=== PATIENT | male | born 1945 | race Caucasian/White ===

== ENCOUNTER 2017-12-19 14:57 | Observation (INO) | payer OTHER, MEDICARE, SELFPAY ==
[2017-12-19] VITALS (11 sets, daily range): BP systolic 127–160; BP diastolic 75–101; PULSE 50–99; RESP 13–18; TEMP 36.8–37; O2SAT 96–100; BMI 28.1; BMI 28.2; BMI 26.4
--- NOTE | 2017-12-19 15:21 | RAD_ITS ---
STUDY: X-RAY CHEST REASON FOR EXAM: Male, 72 years old. Dyspnea. TECHNIQUE: Single AP portable view of the chest. COMPARISON: None. FINDINGS: EKG electrodes are seen. Hyperinflation. Scattered calcified granulomas. No acute abnormality is seen. There is no demonstrated pleural abnormality. Normal size heart. Normal mediastinum and joao. Normal visualized pulmonary arteries. There is atherosclerotic tortuosity of the aortic arch and descending thoracic aorta. There are degenerative changes of the visualized thoracic spine. Normal visualized ribs, clavicles, and shoulders. There is no demonstrated abnormality of the visualized soft tissue structures of the upper abdomen. RAD/Chest 1 View (Portable) IMPRESSION: Hyperinflation. No acute abnormality is seen. Electronically Signed: Karl Werner MD at 15:42 EST Tel [phone], Service support ,
--- NOTE | 2017-12-19 15:21 | EKG12_ITS ---
Test Reason : CP Blood Pressure : / mmHG Vent. Rate : 077 BPM Atrial Rate : 077 BPM P-R Int : 186 ms QRS Dur : 074 ms QT Int : 384 ms P-R-T Axes : 067 -30 076 degrees QTc Int : 434 ms Normal sinus rhythm Left axis deviation Septal WI, age undetermined, cannot be excluded Nonspecific T wave abnormality Abnormal ECG Confirmed by RAMBO GEORGE, JOHN ([id number]), newspaper editor managing SARAN NARANJO ([id number]) on 12/20/2017 10:00:49 AM Referred By: Enrico Wan Confirmed By:JOHN RICKS MD
--- NOTE | 2017-12-19 15:24 | EKG12_ITS ---
Test Reason : REPEAT Blood Pressure : / mmHG Vent. Rate : 068 BPM Atrial Rate : 068 BPM P-R Int : 182 ms QRS Dur : 074 ms QT Int : 392 ms P-R-T Axes : 000 -28 147 degrees QTc Int : 416 ms Normal sinus rhythm Leftward axis Septal ID, age undetermined, cannot be excluded T wave abnormality, consider lateral ischemia Consider repeat ECG Abnormal ECG Confirmed by RAMBO GEORGE, JOHN ([id number]), news video editor SARAN NARANJO ([id number] on 12/20/2017 10:05:04 AM Referred By: Enrico Wan Confirmed By:JOHN RICKS MD
[2017-12-19] MEDS: 0.9% Normal Saline 1,000 ML 150 ML IV (15:29)
[2017-12-19] MEDS: Aspirin 81 MG TAB.CHEW 324 MG PO (15:29)
--- NOTE | 2017-12-19 15:34 | ED.DCSUM_ITS ---
- ER Visit Summary Date of Service: 12/19/17 Chief Complaint: Chest pain History of Present Illness: The patient is a 72 M who goes to the [facility] and has seen Dr. Orosco in the past. Reports that he has chest pain that began 3 days ago. States that it is an intermittent tightness that comes on with exertion and resolves with rest after approximately 15-20 minutes. Pain is substernal radiates to both shoulders and up into his jaw. It is 5 out of 10 at worst and is pain-free currently. It is accompanied by diaphoresis and shortness of breath. This does seem to be accelerating. Patient reports that Tuesday he had the pain while cutting wood. Tuesday and Tuesday he had the pain while carrying wood. Today he had pain just while walking up and down the steps at home. He has not had pain at rest. Reports that he had a stress test 2 or 3 years ago. He has never had a heart catheterization. Physical Examination: Vitals: Stable. Afebrile. General: Well-nourished and well-developed. Head: Normocephalic atraumatic. Neck: Supple, no lymphadenopathy. No JVD. Nontender. Cardiovascular: Regular rate and rhythm. No murmurs. Respiratory: No respiratory distress. Clear to auscultation bilaterally. Abdominal: Soft, nontender, nondistended, normal bowel sounds. No guarding, rebound, or peritoneal signs. Back: Nontender. Extremities: Nontender, no edema. Skin: Normal color, no rash. Neurologic: Alert and oriented ?3. Cranial nerves II through XII are intact. Normal strength and sensation. Psych: Normal affect. Test Results: EKG is sinus at [address] changes. There is no old EKG for comparison. Repeat EKG is unchanged. Chest x-ray shows no acute disease. CBC is remarkable platelets of 118. Chem-7 is remarkable for a BUN of 20. Troponin is 0.08. Emergency Department Course and Treatment: Patient was given aspirin. He remained pain-free while here. After discussion with Dr. Cantrell he was given a shot of Lovenox subcu. Treatment Plan: The patient was discussed with Dr. Cantrell . He will be admitted to the hospital for further evaluation and treatment. Disposition: Admitted in stable condition. Impression: 1. Chest pain. 2. RICKY score of 1. 3. Thrombocytopenia. This note was generated with [employer] dictation software. It may contain incorrect words, spelling, and punctuation that were not noted in review of the chart prior to signing ED Disposition - Plan for ED Patient: Chief Complaint: Chest Pain Referrals: Tunde Guzmán MD [Primary Care Provider] -
[2017-12-19 15:44] LABS: Absolute Lymphocyte Count 1.74 X10^3/ul (0.83-4.51); Absolute Neutrophil Count 2.8 X10^3/uL (2.0-7.7); Basophil# 0.04 X10^3/uL; Basophil% 0.8 % (0-1); Eosinophil# 0.23 X10^3/uL; Eosinophils% 4.4 % (0-5); Hematocrit 46.3 % (40-54); Hemoglobin 15.6 g/dl (13.0-16.5); Lymphocyte # 1.74 X10^3/ul (4.0); Lymphocyte % 33.1 % (19-41); Mean Corp Hgb Conc 33.7 g/gl (32-36); Mean Corpuscular Hgb 30.1 pg (27.0-32.0); Mean Corpuscular Volume 89.4 fL (80-94); Mean Platelet Vol. 9.9 fl (6.2-12.0); Monocyte# 0.42 X10^3/uL; Neutrophil # 2.81 X10^3/uL (2.7-7.7); Neutrophil % 53.5 % (47-70); POSITIVE COUNT NO; POSITIVE DIFFERENTIAL NO; POSITIVE MORPHOLOGY NO; Platelet Count 118 K/mm3 (150-450); RBC Distribution Width CV 12.6 % (11.6-14.6); RBC Distribution Width SD 40.2 fl (35.1-43.9); Red Blood Count 5.18 M/mm3 (4.6-6.2); White Blood Count 5.3 K/mm3 (4.4-11.0)
[2017-12-19 15:55] LABS: Anion Gap 7 (5-15); BUN 20 mg/dL (7-18); BUN/Creat Ratio 18.9 RATIO (10-20); Calcium,Total 8.6 mg/dL (8.5-10.1); Chloride 107 mmol/L (98-107); Creatinine, Serum 1.06 mg/dL (0.70-1.30); EST Glomerular Filtration Rate 73 mL/min (>60); Est Glom Filt Rate - Afr Amer 89 mL/min (>60); Estimated Creatinine Clearance 62.74 ml/min; Glucose 96 mg/dL (74-106); Potassium 4.2 mmol/L (3.5-5.1); Sodium Level 140 mmol/L (136-145)
--- NOTE | 2017-12-19 17:15 | CON.PCM_ITS ---
Reason for Consult Date of Consultation: 12/19/17 Reason for Consultation: Chest pain. History of Present Illness: The patient is a 72 year old M with a past medical history significant for hypertension who presented to the emergency room this afternoon after experiencing chest discomfort described as a heaviness with some radiation to the left side of his neck as well as the left shoulder and the left arm. He says that this appeared to occur with exertion and go away with rest. He was putting some wood this afternoon and also carried it into his house and said he experienced more of this discomfort. Due to the concern he presented to the emergency room where he was evaluated. His electrocardiogram did not demonstrate any acute changes in his diastolic blood pressure was only mildly elevated. He has had some shortness of breath recently over the last month with minimal exertion he has had no nausea no diaphoresis no palpitations no pedal edema. He is not on antihypertensive therapy but is on medication for arthritis. Cardiology was consulted to see the patient because of his symptoms. At this time evaluating him in the emergency room he is free of symptoms. [] Past Medical History Allergies/Adverse Reactions: Allergies Sulfa (Sulfonamide Antibiotics) Allergy (Verified 12/19/17 15:03) Swelling . Home Medications: Ambulatory Orders Medication Instructions Recorded Aspirin [Aspirin, Baby] 81 mg PO DAILY@0800 12/19/17 Meloxicam 15 mg PO DAILY 12/19/17 Pravastatin [Pravachol] 10 mg PO QHS 12/19/17 Surgical History: no surgical history - *Family History Paternal History Items: Hypertension Lives: Spouse/ Significant Other Smoking Status: Former smoker Alcohol: Rare Drugs: None Review of Systems - Review of Systems General: Denies: Fever, Night Sweats, Fatigue Cardiovascular: Reports: Chest Discomfort at Rest, Chest Discomfort with Exertion, Shortness of Breath, Shortness of Breath with Exertion. Denies: Chest Discomfort, Orthopnea, PND, Peripheral Edema, Palpitations, Lightheadedness, Dizziness, Near Syncope, Syncope Respiratory: Denies: Cough, Sputum Production, Hemoptysis Gastrointestinal: Denies: Hematemesis, Hematochezia, Melena Genitourinary: Denies: Dysuria, Hematuria Skin: Denies: Rash Neurological: Denies: Dizziness Subjectve: Pleasant gentleman in no apparent distress Objective: Vital Signs Temp Pulse Resp BP Pulse Ox 98.4 F 99 18 160/80 H 100 12/19/17 14:57 02/05/18 16:00 12/19/17 16:00 12/19/17 16:00 12/19/17 16:00 Oxygen Delivery Method Room Air Weight: 185 lb 3.013 oz Body Mass Index (BMI) 28.1 General: Awake, Alert, Oriented x 3 HEENT: PERRL, EOMI, Sclera Non Icteric Neck: Supple, Good ROM, No Lymph Node Enlargement Lungs: Clear to auscultation Cardiovascular: Regular Rhythm, Normal S1, Normal S2, No Murmurs, No Rubs, No Gallops Vascular: No Carotid Bruits, Normal Femoral Pulses, Normal Radial Pulses, Normal Dorsalis Pedal Pulse, Normal Posterior Tibial Pulses Abdomen: Bowel Sounds Present, Soft, Non Tender, No HSM, No Organomegaly Extremities: No Cyanosis, No Clubbing, No edema Neurological: No Focal Motor or Sensory Deficit Psych/Mental Status: Appropriate 12/19/17 15:24: WBC 5.3, RBC 5.18, Hgb 15.6, Hct 46.3, MCV 89.4, MCH 30.1, MCHC 33.7, RDW 12.6, RDW Differential 40.2, Plt Count 118 L, MPV 9.9, Immature Gran % (Auto) 0.200, Neut % (Auto) 53.5, Lymph % (Auto) 33.1, [place] % (Auto) 8.0, Eos % (Auto) 4.4, Baso % (Auto) 0.8, Absolute Neuts (auto) 2.8, Total Counted Not Reportable 12/19/17 15:24: Sodium 140, Potassium 4.2, Chloride 107, Carbon Dioxide 26.0, Anion Gap 7, BUN 20 H, Creatinine 1.06, Est GFR (MDRD) Af Amer 89, Est GFR (MDRD ) Non-Af 73, BUN/Creatinine Ratio 18.9, Glucose 96, Calcium 8.6, Troponin I 0.08 H Rhythm: EKG: Normal sinus rhythm rate of 70 bpm and no acute changes. Assessment/Plan 1. Chest pain-unstable angina. He presents with chest discomfort of recent duration associated with shortness of breath with minimal exertion which appears to be getting worse with time. Though he does not have any EKG changes and he has a RICKY score of 1 my recommendation based on his history is that we defer stress testing and proceed with a cardiac catheterization. 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 He does have a history of hyperlipidemia. My recommendation at this time would be to treated as follows. Aspirin 81 mg a day Clopidogrel loading with 300 mg tonight and 75 mg daily Metoprolol 25 mg twice a day Pravastatin 40 mg a day Nitropaste overnight Scheduled for cardiac catheterization in a.m. at 7:45 AM Has been discussed with the patient and his and they understand and agree to proceed. 2. Hyperlipidemia He has previously been on lipid lowering medication and lipid profile will be performed in a.m. 3. Thrombocytopenia Does have mild thrombocytopenia and this will be rechecked in the morning. Thank you for allowing me to participate in the care of your patient. Please don't hesitate to call if any issues arise
[2017-12-19] MEDS: Enoxaparin 100 MG/ML Syringe 80 MG SC (17:25)
[2017-12-19] MEDS: Clopidogrel Bisulfate 300 MG Tablet PO (18:22)
[2017-12-19] MEDS: Nitroglycerin Oint 1 INCH PACKET TRANSDERM. ×2 (19:25→23:57)
[2017-12-19] MEDS: 0.9% Normal Saline 1,000 ML 75 ML IV (21:04)
[2017-12-19] MEDS: Pravastatin 40 MG Tablet PO (21:05)
[2017-12-19] MEDS: Metoprolol Tartrate 25 MG Tablet PO (21:05)
[2017-12-20] VITALS (32 sets, daily range): BP systolic 85–150; BP diastolic 49–95; PULSE 48–129; RESP 12–22; TEMP 36.6–36.7; O2SAT 94–100
[2017-12-20 04:53] LABS: Absolute Lymphocyte Count 2.32 X10^3/ul (0.83-4.51); Absolute Neutrophil Count 2.6 X10^3/uL (2.0-7.7); Basophil# 0.05 X10^3/uL; Basophil% 0.9 % (0-1); Eosinophil# 0.31 X10^3/uL; Eosinophils% 5.4 % (0-5); Hematocrit 41.9 % (40-54); Hemoglobin 14.5 g/dl (13.0-16.5); Lymphocyte # 2.32 X10^3/ul (4.0); Lymphocyte % 40.4 % (19-41); Mean Corp Hgb Conc 34.6 g/gl (32-36); Mean Corpuscular Hgb 30.8 pg (27.0-32.0); Mean Platelet Vol. 10.1 fl (6.2-12.0); Monocyte# 0.41 X10^3/uL; Monocyte% 7.1 % (0-10); Neutrophil # 2.63 X10^3/uL (2.7-7.7); Neutrophil % 45.9 % (47-70); Platelet Count 118 K/mm3 (150-450); RBC Distribution Width CV 12.6 % (11.6-14.6); RBC Distribution Width SD 40.9 fl (35.1-43.9); Red Blood Count 4.71 M/mm3 (4.6-6.2); White Blood Count 5.7 K/mm3 (4.4-11.0)
[2017-12-20 04:55] LABS: International Normalized Ratio 1.2; Prothrombin Time (Protime)PT. 14.3 SECONDS (11.7-14.9)
[2017-12-20 04:57] LABS: Partial Thromboplast Time 34.4 Seconds (24.1-36.2)
[2017-12-20 05:08] LABS: POSITIVE COUNT NO; POSITIVE DIFFERENTIAL NO; POSITIVE MORPHOLOGY NO
[2017-12-20 05:12] LABS: ALB/GLOB Ratio 1.5 RATIO (0.9-2.4); AST(SGOT) 16 U/L (15-37); Alanine Aminotransfer ALT/SGPT 19 U/L (16-61); Albumin, Serum 3.6 g/dL (3.2-5.0); Alkaline Phosphatase 46 U/L (45-117); Anion Gap 6 (5-15); BUN 17 mg/dL (7-18); BUN/Creat Ratio 16.3 RATIO (10-20); Calcium,Total 7.9 mg/dL (8.5-10.1); Chloride 111 mmol/L (98-107); Cholesterol 176 mg/dL (200); Creatinine, Serum 1.04 mg/dL (0.70-1.30); EST Glomerular Filtration Rate 75 mL/min (>60); Est Glom Filt Rate - Afr Amer 91 mL/min (>60); Estimated Creatinine Clearance 66.09 ml/min; Globulin 2.4 g/dL (2.2-4.2); Glucose 91 mg/dL (74-106); High Density Lipoprotein 45 mg/dL; Potassium 4.4 mmol/L (3.5-5.1); Sodium Level 144 mmol/L (136-145); Triglycerides 220 mg/dL; Very Low Density Lipoprotein 44 mg/dL (5-40)
[2017-12-20] MEDS: Metoprolol Tartrate 25 MG Tablet PO ×2 (05:45→21:06)
[2017-12-20] MEDS: Aspirin E.C. 81 MG Tablet PO (05:45)
[2017-12-20] MEDS: Clopidogrel Bisulfate 75 MG Tablet PO (05:45)
[2017-12-20] MEDS: Nitroglycerin Oint 1 INCH PACKET TRANSDERM. ×2 (05:45→14:17)
--- NOTE | 2017-12-20 05:55 | EKG12_ITS ---
Test Reason : AM EKG Blood Pressure : / mmHG Vent. Rate : 055 BPM Atrial Rate : 055 BPM P-R Int : 188 ms QRS Dur : 074 ms QT Int : 506 ms P-R-T Axes : 023 -13 114 degrees QTc Int : 484 ms Sinus bradycardia T wave abnormality, consider anterolateral ischemia Prolonged QT Abnormal ECG Confirmed by RAMBO GEORGE, JOHN ([id number]), film editor supervisor SARAN NARANJO ([id number]) on 12/21/2017 2:56:25 PM Referred By: Enrico Wan Confirmed By:JOHN RICKS MD
[2017-12-20] MEDS: 0.9% Normal Saline 1,000 ML 75 ML IV (06:52)
--- NOTE | 2017-12-20 08:09 | PCM.PN.CARD ---
Subjectve: Seen and evaluated and appears to be doing well and underwent cardiac catheterization this morning Objective: Vital Signs Temp Pulse Resp BP Pulse Ox 97.9 F 62 18 117/57 L 97 12/20/17 05:53 12/20/17 07:06 12/20/17 05:53 12/20/17 05:53 12/20/17 05:53 Oxygen Flow Rate 2 Oxygen Delivery Method Nasal Cannula Weight: 179 lb 3.773 oz Body Mass Index (BMI) 26.4 Intake and Output for Last 24 Hours 12/18/17 12/19/17 12/20/17 23:59 23:59 23:59 Intake Total 480 / 480 742 / 742 Balance 480 / 480 742 / 742 General: Awake, Alert, Oriented x 3 HEENT: PERRL, EOMI, Sclera Non Icteric Neck: Supple, Good ROM, No Lymph Node Enlargement Lungs: Clear to auscultation Cardiovascular: Regular Rhythm, Normal S1, Normal S2, No Murmurs, No Rubs, No Gallops Vascular: No Carotid Bruits, Normal Femoral Pulses, Normal Radial Pulses, Normal Dorsalis Pedal Pulse, Normal Posterior Tibial Pulses Abdomen: Bowel Sounds Present, Soft, Non Tender, No HSM, No Organomegaly Extremities: No Cyanosis, No Clubbing, No edema Neurological: No Focal Motor or Sensory Deficit 12/19/17 18:50: Troponin I 0.60 H* 12/19/17 23:08: Troponin I 1.03 H* 12/20/17 04:28: WBC 5.7, RBC 4.71, Hgb 14.5, Hct 41.9, MCV 89.0, MCH 30.8, MCHC 34.6, RDW 12.6, RDW Differential 40.9, Plt Count 118 L, MPV 10.1, Immature Gran % (Auto) 0.300, Neut % (Auto) 45.9 L, Lymph % (Auto) 40.4, [place] % (Auto) 7.1, Eos % (Auto) 5.4 H, Baso % (Auto) 0.9, Absolute Neuts (auto) 2.6, Total Counted Not Reportable 12/20/17 04:28: Sodium 144, Potassium 4.4, Chloride 111 H, Carbon Dioxide 27.0, Anion Gap 6, BUN 17, Creatinine 1.04, Est GFR (MDRD) Af Amer 91, Est GFR (MDRD) Non-Af 75, BUN/Creatinine Ratio 16.3, Glucose 91, Calcium 7.9 L, Total Bilirubin 0.70, Troponin I 0.81 H*, Triglycerides 220 H, Cholesterol 176, LDL Cholesterol 87, VLDL Cholesterol 44 H, HDL Cholesterol 45 12/20/17 04:28: PT 14.3, INR 1.2, APTT 34.4 Rhythm: EKG: Sinus rhythm with anterior T-wave inversions Assessment/Plan 1. Chest pain-unstable [id number] elevation myocardial infarction There is a patient this morning demonstrated the following: Normal left main coronary artery Left anterior descending artery with proximal 95% stenosis Left circumflex artery with mild disease. Right coronary artery dominant with mild mid segment disease Preserved left ventricular systolic function. Based on the above angiographic findings he would be referred for angioplasty of the left anterior descending artery. 2. Hyperlipidemia He has previously been on lipid lowering medication and lipid profile running appears to be stable but would increase it to a high intensity statin. 3. Thrombocytopenia Does have mild thrombocytopenia and this is remaining stable. Thank you for allowing me to participate in the care of your patient. Please don't hesitate to call if any issues arise
--- NOTE | 2017-12-20 08:45 | NURSING ---
Patient will be stented and sent to ICU from labor representative. Spoke with Artur TOBACCO SAMPLE PULLER and gave report.
--- NOTE | 2017-12-20 09:17 | EKG12_ITS ---
Test Reason : PCI Blood Pressure : / mmHG Vent. Rate : 047 BPM Atrial Rate : 047 BPM P-R Int : 196 ms QRS Dur : 076 ms QT Int : 548 ms P-R-T Axes : 067 -16 090 degrees QTc Int : 484 ms Sinus bradycardia Marked T wave abnormality, consider anterolateral ischemia Prolonged QT Abnormal ECG Confirmed by RAMBO GEORGE, JOHN ([id number]), editorial specialist SARAN NARANJO ([id number]) on 12/26/2017 2:12:37 PM Referred By: Enrico Wan Confirmed By:JOHN RICKS MD
[2017-12-20] MEDS: 0.9% Normal Saline 1,000 ML 150 ML IV (09:32)
[2017-12-20 09:41] LABS: Hematocrit 39.7 % (40-54); Hemoglobin 13.5 g/dl (13.0-16.5); Mean Corpuscular Hgb 30.7 pg (27.0-32.0); Mean Corpuscular Volume 90.2 fL (80-94); Platelet Count 112 K/mm3 (150-450); RBC Distribution Width CV 12.6 % (11.6-14.6); RBC Distribution Width SD 40.9 fl (35.1-43.9); White Blood Count 5.1 K/mm3 (4.4-11.0)
[2017-12-20 09:43] LABS: Scan Indicated on CBC? Y/N NO
[2017-12-20 09:49] LABS: CPK Total, Creatine Kinase 67 U/L (39-308)
--- NOTE | 2017-12-20 10:27 | CRPHASE1 ---
Patient Data/Charges Phase II Referral:: [facility] Start Phase II:: FOLLOWING CARDIOLOGY OFFICE VISIT Risk Factors/Lifestyle Smoking Status: Former smoker Hx Hypertension: Yes Hx Dyslipidemia: Yes Height: 5 ft 9 in - BMI 26.5 Stress: Home/Family Risk Factor for Sedentary Lifestyle: Moderate Risk Laboratory Values: Cardiac Rehab Phase I Labs Triglycerides 220 mg/dL (-199) H 12/20/17 04:28 Cholesterol 176 mg/dL (200) 12/20/17 04:28 LDL Cholesterol 87 mg/dL (0-130) 12/20/17 04:28 HDL Cholesterol 45 mg/dL (40-) 12/20/17 04:28 Phase I Education Given On:: [place], Nutrition, Antiplatelet medication Issues Affecting Care:: None Knowledge of Condition:: Yes Learning Preferences: Verbal, Written - AT BEDSIDE Hospital Course Presenting Symptoms:: DYSPNEA WITH EXERTION. NON-STEMI Medical/Surgical History MT:: Yes Angina:: No Hypertension:: Yes Dyslipidemia:: Yes Discharge/Home/Social Eval Discharge Disposition: Home Marital Status:
--- NOTE | 2017-12-20 10:30 | CRPHASE1_ITS ---
Patient Data/Charges Phase II Referral:: [facility] Start Phase II:: FOLLOWING CARDIOLOGY OFFICE VISIT Risk Factors/Lifestyle Smoking Status: Former smoker Hx Hypertension: Yes Hx Dyslipidemia: Yes Height: 5 ft 9 in - BMI 26.5 Stress: Home/Family Risk Factor for Sedentary Lifestyle: Moderate Risk Laboratory Values: Cardiac Rehab Phase I Labs Triglycerides 220 mg/dL (-199) H 12/20/17 04:28 Cholesterol 176 mg/dL (200) 12/20/17 04:28 LDL Cholesterol 87 mg/dL (0-130) 12/20/17 04:28 HDL Cholesterol 45 mg/dL (40-) 12/20/17 04:28 Phase I Education Given On:: [place], Nutrition, Antiplatelet medication Issues Affecting Care:: None Knowledge of Condition:: Yes Learning Preferences: Verbal, Written - AT BEDSIDE Hospital Course Presenting Symptoms:: DYSPNEA WITH EXERTION. NON-STEMI Medical/Surgical History OK:: Yes Angina:: No Hypertension:: Yes Dyslipidemia:: Yes Discharge/Home/Social Eval Discharge Disposition: Home Marital Status:
--- NOTE | 2017-12-20 10:32 | CRPH1.INST_ITS ---
General Education CAD and cardiac anatomy and function:: Patient communicates acknowledgment, Family communicates acknowledgment Explanation of diagnoses and procedures:: Patient communicates acknowledgment, Family communicates acknowledgment Sign/Symptoms of OR:: Patient communicates acknowledgment, Family communicates acknowledgment Antiplatelet therapy: Patient communicates acknowledgment, Family communicates acknowledgment Proper use of NTG-SL: Patient communicates acknowledgment, Family communicates acknowledgment Emergency procedures and activation of EMS: Patient communicates acknowledgment , Family communicates acknowledgment Compliance of all prescribed medications: Patient communicates acknowledgment, Family communicates acknowledgment - AT BEDSIDE Smoking Recommendations Include:: Previous smoker; encourage continued cessation Nicotine/Smoking Response Code:: Patient communicates acknowledgment, Family communicates acknowledgment Dyslipidemia Patient Dyslipidemia Risk Factors Are:: Total Cholesterol, Triglycerides, HDL, LDL Recommendations Include:: Lipid profile provided, Reviewed NCEP/ATP guidelines, Therapeutic Lifestyle Change dietary guidelines Dyslipidemia Response Code:: Patient communicates acknowledgment, Family communicates acknowledgment Overweight/Obesity Patient Overweight/Obesity Risk Factors Are:: Overweight = 26-29 Recommendations Include:: Weight loss of 5-10%, Reduced calorie diet, Exercise 5 -7 times/week Overweight/Obesity:: Patient communicates acknowledgment, Family communicates acknowledgment Hypertension Recommendations Include:: Maintain BP <130/85, DASH dietary guidelines, Decrease /maintain normal body weight, Moderation of ETOH Hypertension:: Patient communicates acknowledgment, Family communicates acknowledgment Heart Disease Recommendations Include:: Educated family members of importance of prevention of heart disease Heart Disease Response Code:: Patient communicates acknowledgment, Family communicates acknowledgment Diabetes Patient Diabetes Risk Factors Are:: No documented hx of diabetes Metabolic Syndrome Patient Metabolic Syndrome Risk Factors Are [3 of 5]:: High triglyceride >150, Hypertension, Low HDL <40 [male] or < 50 [female] Recommendations Include:: Reinforce compliance to risk factor modifications, Encouraged follow-up with Primary Care Physician Metabolic Syndrome Response Code:: Patient communicates acknowledgment, Family communicates acknowledgment Sedentary Patient Sedentary Risk Factors Are:: Lack of regular exercise Recommendations Include:: Aerobic exercise 5-7 times/week for 20-30 minutes continuously, Benefits of regular exercise, Discussed home walking program, Monitored Outpatient Cardiac Rehab Sedentary Response Code:: Patient communicates acknowledgment, Family communicates acknowledgment Stress Recommendations Include:: Identification of stressors, and assessment of coping skills, Stress management techniques Stress Response Code:: Patient communicates acknowledgment, Family communicates acknowledgment
[2017-12-20 11:05] LABS: ACT Activated Clotting Time 186 sec (74-137)
[2017-12-20 11:46] LABS: ACT Activated Clotting Time 191 sec (74-137)
[2017-12-20 12:10] LABS: M R Staph aureus DNA By PCR Negative (Negative); Probe Check PASS; Specimen Processing Control PASS
[2017-12-20 12:11] LABS: ACT Activated Clotting Time 153 sec (74-137)
--- NOTE | 2017-12-20 14:42 | CHAPLAIN ---
Type of Pastoral Visit _x__ Initial Visit ___ Follow-up Visit ___ On-call Visit ___ General Patient Visit ___ Spiritual Assessment ___ Family Conference ___ Bereavement ___ Rapid Response ___ Code Blue ___ Other (describe below) Pastoral Care Referral From _x__ Patient _x__ Family ___ Nurse ___ Physician ___ Credit Correspondence Clerk ___ Electrical Instrument Technician ___ Other (describe below) Sacrament/Intervention _x__ Active listening ___ Anointing ___ Restoration ___ Bereavement ___ Communion ___ [place] exploration ___ ___ Life review _x__ Prayer ___ Reconciliation ___ Sacrament of Sick ___ Supportive presence ___ Wedding ___ Other (describe below) Pastoral Comments
[2017-12-20 16:49] LABS: Hematocrit 42.2 % (40-54); Mean Corp Hgb Conc 33.2 g/gl (32-36); Mean Corpuscular Hgb 29.9 pg (27.0-32.0); Mean Corpuscular Volume 90.2 fL (80-94); Mean Platelet Vol. 9.8 fl (6.2-12.0); Platelet Count 109 K/mm3 (150-450); RBC Distribution Width CV 12.9 % (11.6-14.6); RBC Distribution Width SD 41.3 fl (35.1-43.9); Red Blood Count 4.68 M/mm3 (4.6-6.2); White Blood Count 4.8 K/mm3 (4.4-11.0)
[2017-12-20 17:03] LABS: CPK Total, Creatine Kinase 73 U/L (39-308)
[2017-12-20 17:07] LABS: Scan Indicated on CBC? Y/N NO
[2017-12-20] MEDS: Atorvastatin Calcium 80 MG Tablet PO (21:07)
[2017-12-20] MEDS: 0.9% NaCl Peripheral Flush Adult/Peds IV (21:08)
[2017-12-20 23:06] LABS: Hematocrit 40.8 % (40-54); Hemoglobin 13.5 g/dl (13.0-16.5); Mean Corp Hgb Conc 33.1 g/gl (32-36); Mean Corpuscular Hgb 29.8 pg (27.0-32.0); Mean Corpuscular Volume 90.1 fL (80-94); Mean Platelet Vol. 9.6 fl (6.2-12.0); Platelet Count 104 K/mm3 (150-450); RBC Distribution Width CV 12.8 % (11.6-14.6); RBC Distribution Width SD 41.6 fl (35.1-43.9); Red Blood Count 4.53 M/mm3 (4.6-6.2); White Blood Count 8.1 K/mm3 (4.4-11.0)
[2017-12-20 23:07] LABS: Scan Indicated on CBC? Y/N NO
[2017-12-20 23:20] LABS: CPK Total, Creatine Kinase 70 U/L (39-308)
[2017-12-21] VITALS (14 sets, daily range): BP systolic 97–129; BP diastolic 52–79; PULSE 52–60; RESP 12–18; TEMP 36.6–37.6; O2SAT 94–97
[2017-12-21 06:50] LABS: Hematocrit 41.5 % (40-54); Hemoglobin 13.8 g/dl (13.0-16.5); Mean Corp Hgb Conc 33.3 g/gl (32-36); Mean Corpuscular Hgb 29.7 pg (27.0-32.0); Mean Corpuscular Volume 89.5 fL (80-94); Mean Platelet Vol. 9.9 fl (6.2-12.0); Platelet Count 102 K/mm3 (150-450); RBC Distribution Width CV 12.8 % (11.6-14.6); RBC Distribution Width SD 41.2 fl (35.1-43.9); Red Blood Count 4.64 M/mm3 (4.6-6.2); Scan Indicated on CBC? Y/N NO
[2017-12-21 07:05] LABS: Anion Gap 8 (5-15); BUN 17 mg/dL (7-18); BUN/Creat Ratio 18.5 RATIO (10-20); Calcium,Total 8.2 mg/dL (8.5-10.1); Chloride 110 mmol/L (98-107); Creatinine, Serum 0.92 mg/dL (0.70-1.30); EST Glomerular Filtration Rate 86 mL/min (>60); Est Glom Filt Rate - Afr Amer 104 mL/min (>60); Estimated Creatinine Clearance 74.71 ml/min; Glucose 92 mg/dL (74-106); Potassium 4.1 mmol/L (3.5-5.1); Sodium Level 142 mmol/L (136-145)
--- NOTE | 2017-12-21 07:51 | PN.CARD_ITS ---
Subjectve: patient seen and evaluated well with no complaints. Objective: Vital Signs Temp Pulse Resp BP Pulse Ox 98.7 F 52 L 17 116/69 96 12/21/17 03:00 12/21/17 06:00 12/21/17 06:00 12/21/17 06:00 12/21/17 06:00 Oxygen Flow Rate 2 Oxygen Delivery Method Room Air Weight: 180 lb 12.465 oz Body Mass Index (BMI) 26.4 Intake and Output for Last 24 Hours 12/19/17 12/20/17 12/21/17 23:59 23:59 23:59 Intake Total 480 / 480 2392 / 2392 640 / 640 Output Total 1200 / 1200 700 / 700 Balance 480 / 480 1192 / 1192 -60 / -60 General: Awake, Alert, Oriented x 3 HEENT: PERRL, EOMI, Sclera Non Icteric Neck: Supple, Good ROM, No Lymph Node Enlargement Lungs: Clear to auscultation Cardiovascular: Regular Rhythm, Normal S1, Normal S2, No Murmurs, No Rubs, No Gallops Vascular: No Carotid Bruits, Normal Femoral Pulses, Normal Radial Pulses, Normal Dorsalis Pedal Pulse, Normal Posterior Tibial Pulses Abdomen: Bowel Sounds Present, Soft, Non Tender, No HSM, No Organomegaly Extremities: No Cyanosis, No Clubbing, No edema Neurological: No Focal Motor or Sensory Deficit 12/20/17 09:25: WBC 5.1, RBC 4.40 L, Hgb 13.5, Hct 39.7 L, MCV 90.2, MCH 30.7, MCHC 34.0, RDW 12.6, RDW Differential 40.9, Plt Count 112 L, MPV 10.0 12/20/17 16:25: WBC 4.8, RBC 4.68, Hgb 14.0, Hct 42.2, MCV 90.2, MCH 29.9, MCHC 33.2, RDW 12.9, RDW Differential 41.3, Plt Count 109 L, MPV 9.8 12/20/17 22:50: WBC 8.1, RBC 4.53 L, Hgb 13.5, Hct 40.8, MCV 90.1, MCH 29.8, MCHC 33.1, RDW 12.8, RDW Differential 41.6, Plt Count 104 L, MPV 9.6 12/21/17 06:30: WBC 6.0, RBC 4.64, Hgb 13.8, Hct 41.5, MCV 89.5, MCH 29.7, MCHC 33.3, RDW 12.8, RDW Differential 41.2, Plt Count 102 L, MPV 9.9 12/21/17 06:30: Sodium 142, Potassium 4.1, Chloride 110 H, Carbon Dioxide 24.0, Anion Gap 8, BUN 17, Creatinine 0.92, Est GFR (MDRD) Af Amer 104, Est GFR (MDRD ) Non-Af 86, BUN/Creatinine Ratio 18.5, Glucose 92, Calcium 8.2 L Rhythm: EKG: Sinus rhythm Assessment/Plan 1. Chest pain-unstable [id number]-EG elevation myocardial infarction The catheterization demonstrated the following: Normal left main coronary artery Left anterior descending artery with proximal 95% stenosis Left circumflex artery with mild disease. Right coronary artery dominant with mild mid segment disease Preserved left ventricular systolic function. Patient underwent successful angioplasty and stenting of the left anterior descending artery with a drug-eluting stent. His creatinine has remained stable and his hemoglobin has also remained stable EKG is stable with no changes and the patient has not had any chest pain. Will be to discharge the patient later today 2. Hyperlipidemia He has previously been on lipid lowering medication and lipid profile running appears to be stable but would increase it to a high intensity statin. 3. Thrombocytopenia Does have mild thrombocytopenia and this is remaining stable. Able to be discharged.
--- NOTE | 2017-12-21 08:44 | PCM.DC.CCA ---
Discharge Diet: Low fat/ Low Cholesterol Discharge Activity: Return to Normal Activity Return to work on:: 12/28/17 May resume sexual activity in: 1 week Call your doctor if your incision/area has: Increased Pain/ Swelling, Increased Redness, Foul Smelling Discharge, Swelling at the incision site Call your doctor if you observe: Fever of 101 or Higher Cleanse incision/area with: Keep Dressing Clean & Dry Additional Dressing/Incision Instructions:: Keep the dressing (bandage) on until the next morning. You may then shower, but do not take a tub bath for 5 days after your test. It is normal to have some tenderness and discomfort at the puncture site. Sometimes bruising also occurs. However, if pain, numbness, or coldness occurs below the puncture site (in your leg, toes, arms or fingers) call your doctor at once. You may have a small, marble sized knot at the puncture site. This is normal. Do not rub it. It will go away in 4-6 weeks. Bleeding can occur from the area where the puncture was done. Blood may spurt or drip from the site. If blood spurts, apply pressure right away to stop bleeding and call 911. Although rare, bleeding into the tissue (hematoma) can also occur. If this happens, a large, firm area goose egg under the skin will appear. If any of these occur, lie down as flat as you can and have someone apply firm pressure to the cath site with a gauze pad or a clean washcloth for 10-15 minutes. Call 911 or go to the Emergency Department. Allergies/Adverse Reactions: Allergies Sulfa (Sulfonamide Antibiotics) Allergy (Verified 12/19/17 15:03) Swelling . Medications to take at Discharge Aspirin [Aspirin, Baby] 81 mg PO DAILY@0800 12/19/17 Aspirin E.C. [Ecotrin] 81 mg PO DAILY@0800 #90 tablet 12/21/17 Atorvastatin Calcium [Lipitor] 80 mg PO QHS #30 tablet 12/21/17 Clopidogrel Bisulfate [Plavix] 75 mg PO DAILY #30 tablet 12/21/17 Losartan Potassium [Cozaar] 25 mg PO DAILY #30 tablet 12/21/17 Metoprolol Tartrate [Lopressor (beta juanis)] 25 mg PO BID #60 tablet 12/21/17 The following prescriptions were given: Aspirin E.C. [Ecotrin] 81 mg PO DAILY@0800 #90 tablet Atorvastatin Calcium [Lipitor] 80 mg PO QHS #30 tablet Clopidogrel Bisulfate [Plavix] 75 mg PO DAILY #30 tablet Losartan Potassium [Cozaar] 25 mg PO DAILY #30 tablet Metoprolol Tartrate [Lopressor (beta juanis)] 25 mg PO BID #60 tablet Primary Care Physician: Tunde Guzmán MD [Primary Care Provider] - Please Follow Up With: my office will call Proposed Discharge Date: 12/21/17 Cardiac Rehabilitation Info Cardiac Rehabilitation Program Information: Cardiac Rehabilitation is important for patients like you who are recovering from a heart problem. Cardiac rehabilitation programs are recognized as integral to the continued care of the patient with coronary heart disease. The cardiac rehabilitation program is designed to optimize a patient's physical, psychological, and social functioning. Health child day care provider work in cardiac rehabilitation programs and assist you with getting the treatments you need to get stronger and healthier - like exercise, healthy eating habits, and medications. Cardiac rehabilitation has been show to help people with heart problems live longer and have better life enjoyment than people who do not go to cardiac rehabilitation. Please contact the Cardiac Rehabilitation Program at [facility] at in two weeks if you have not heard from them.
[2017-12-21] MEDS: Aspirin E.C. 81 MG Tablet PO (10:20)
[2017-12-21] MEDS: Metoprolol Tartrate 25 MG Tablet PO (10:20)
[2017-12-21] MEDS: Losartan Potassium 25 MG Tablet PO (10:20)
[2017-12-21] MEDS: Clopidogrel Bisulfate 75 MG Tablet PO (10:23)
--- NOTE | 2017-12-21 10:47 | CL.I_ITS ---
Patient Name: TAYA SINGLETARY Study Date: 12/20/2017 Performing: Shaw Bernabe MD Ht: 68.89 inches 175 cm : 1945 Wt: 178.57 lbs 81 kg Age: 72 Gender: male BSA: 1.97 PROCEDURE(S) PERFORMED [id number] W OR WO PTCA, SINGLE CORONARY ARTERY CLINICAL PROFILE AND CO-MORBIDITIES CONCLUSIONS Successful PTCA/MICHAEL of the proximal LAD with a 3.0 x 38 Promus Synergy, post dilated with a 3.25 x 12 NC balloon between 12 and 14 roger; 85%-->0%, no dissection. Medical management of LCX, RCA non obstructive disease. RECOMMENDATIONS Highly recommend quitting all tobacco products Follow up with primary solid waste collector Risk factor modification ASA Indefinitley Plavix for at least 12 months Routine post interventional care Refer for Outpatient Cardiac Rehab Manual sheath removal per protocol Follow up with Dr. Cantrell DESCRIPTION OF PROCEDURE The patient arrived to the procedure lab. The risks and benefits of the procedure as well as a full d escription of our services here and current unavailability of surgical backup were fully explained to the patient and/or their significant other prior to the catheterization. The Timeout was completed, verifying the correct patient and procedure. The patient's procedural site was prepped and draped in the usual fashion. Local anesthetic was given subcutaneously to right groin region with Lidocaine 2% Using a modified Seldinger technique,arterial access was obtained via the right femoral artery, a 5Fr sheath was inserted. Left Coronary Artery selective angiography was performed in multiple views usin g a 5 Fr. JL 4.5 catheter. Right Coronary Artery selective angiography was then performed in multiple views using a 5 Fr. 3DRC (Francesco) catheter. Left Ventriculography was performed in SANTIAGO projection using a 5 Fr. Pigtail catheter. LV to AO pullback pressures were then recorded.The images were review ed and options discussed. A decision was then made to proceed with an Intervention, IVUS or other adj unct procedure. Arterial sheath was exchanged for a 6 Fr Sheath ebu 3.75 Guide catheter was inserted and engaged into the LCA. Angiogram performed pre balloon dilatation. bmw Guide wire was advanced to the LAD. emerge 2.0x12 Balloon catheter was inserted. PTCA balloon inflated at 8 atms for 10 secs PTCA balloon inflat ed at 10 atms for 10 secs PTCA balloon inflated at 12 atms for 9 secs PTCA balloon inflated at 12 roger s for 11 secs PTCA balloon inflated at 12 atms for 8 secs Angiogram performed post balloon dilatation . synergy 3.00x38 Drug Eluting stent was inserted Angiogram performed pre stent deployment. Angiogram performed post stent deployment. nc emerge 3.25x12 Balloon catheter was inserted. PTCA balloon infla fransisca at 12 atms for 9 secs PTCA balloon inflated at 12 atms for 7 secs PTCA balloon inflated at 12 roger s for 6 secs PTCA balloon inflated at 14 atms for 9 secs PTCA balloon inflated at 12 atms for 7 secs Angiogram performed post balloon dilatation.. . The arterial sheath was sutured in place and capped. INTERVENTION INFORMATION LESION SITE: LAD (Proximal) Lesion Complexity: High/C, lesion at bifurcation: No, thrombus present: No, lesion length: 38 mm, cul prit lesion: Yes Pre Stenosis: 85 % Pre intervention RICKY flow: 3 PROCEDURE: Drug Eluting Stent with pre and post dilatation Post Stenosis: 0 % Post intervention RCIKY flow: 3 Lesion Devices: Perez .014 BMW Portis Straight 190cm Autonomous Marine Systemstronic 6 Fr EBU3.75 100cm Guide Catheter Jason Sci EMERGE MR 2.00x12 BALLOON Jason Sci Synergy MR MICHAEL 3.00x38 Jason Sci NC EMERGE MR 3.25x12 BALLOON COMPLICATIONS No Complications PROCEDURE MEDICATIONS Versed 1 mg IV Fentanyl 50 mcg IV Morphine 2 mg IV Oxygen: 2 L/min via nasal cannula Heparin 6000 unit(s) IV 12/20/2017 08:24:31 Heparin 4000 unit(s) IV 12/20/2017 08:53:39 Nitro Paste removed at this time 12/20/2017 08:10:58 Nitro 200 mcg IC 12/20/2017 08:27:17 Nitro 200 mcg IC 12/20/2017 08:33:27 Nitro 200 mcg IC 12/20/2017 08:38:55 IV Bolus: .9 NaCl 500ml total 12/20/2017 08:26:34 SUMMARY OF HEMODYNAMIC DATA Time AIR REST ECG 07:38:03 AO 106/59 (77) SA 07:52:22 LV 127/3, 14 07:59:42 LV 118/1, 14 07:59:49 LV 104/1, 12 08:00:55 LVp 114/0, 16 08:00:59 AO 109/55 (76) 08:01:04 Signed By Shaw Bernabe MD On 12/20/2017 08:58:55 Shaw Bernabe MD
--- NOTE | 2017-12-21 10:49 | CL.D_ITS ---
Patient Name: TAYA SINGLETARY Study Date: 12/20/2017 Performing: Lm Cantrell MD Ht: 68.89 inches 175 cm : 1945 Wt: 178.57 lbs 81 kg Age: 72 Gender: male BSA: 1.97 PROCEDURE(S) PERFORMED BI80-WRI/COR/LV BP74-VDB W OR WO PTCA, SINGLE CORONARY ARTERY CLINICAL PROFILE AND INDICATIONS INDICATIONS: 72-year-old man with chest pain and unstable angina and non-ST elevation myocardial infarction Stress/Imaging Stress/Image Study Performed: No CONCLUSIONS Severe single-vessel disease involving the proximal left anterior descending artery with mild to mode rate calcification. RECOMMENDATIONS Referred for immediate PCI DESCRIPTION OF PROCEDURE The patient arrived to the procedure lab. The risks and benefits of the procedure as well as a full d escription of our services here and current unavailability of surgical backup were fully explained to the patient and/or their significant other prior to the catheterization. The Timeout was completed, verifying the correct patient and procedure. The patient's procedural site was prepped and draped in the usual fashion. Local anesthetic was given subcutaneously to right groin region with Lidocaine 2%. Using a modified Seldinger technique, arterial access was obtained via the right femoral artery, a 5 Fr sheath was inserted. Left Coronary Artery selective angiography was performed in multiple views u sing a 5 Fr. JL 4.5 catheter. Right Coronary Artery selective angiography was then performed in multi ple views using a 5 Fr. 3DRC (Francesco) catheter. Left Ventriculography was performed in SANTIAGO projecti on using a 5 Fr. Pigtail catheter. LV to AO pullback pressures were then recorded.The arterial sheath was sutured in place and capped CORONARY ANGIOGRAPHY DOMINANCE: Right Dominant LEFT HEART ASSESSMENT Left Ventricular Ejection Fraction: by LV Gram 53 % Anterior Hypokinesis - Mild Normal Left Ventricular systolic function LEFT MAIN: Angiographically normal LEFT ANTERIOR DECENDING ARTERY: 95 % Stenosis PROX LAD: Mild calcification, long 95 % Stenosis CIRCUMFLEX ARTERY: Mild luminal irregularities RIGHT CORONARY ARTERY: Mild luminal irregularities COMPLICATIONS No Complications PROCEDURE MEDICATIONS Versed 1 mg IV Fentanyl 50 mcg IV Morphine 2 mg IV Oxygen: 2 L/min via nasal cannula Heparin 6000 unit(s) IV 12/20/2017 08:24:31 Heparin 4000 unit(s) IV 12/20/2017 08:53:39 Nitro Paste removed at this time 12/20/2017 08:10:58 Nitro 200 mcg IC 12/20/2017 08:27:17 Nitro 200 mcg IC 12/20/2017 08:33:27 Nitro 200 mcg IC 12/20/2017 08:38:55 IV Bolus: .9 NaCl 500ml total 12/20/2017 08:26:34 SUMMARY OF HEMODYNAMIC DATA Time AIR REST ECG 07:38:03 AO 106/59 (77) SA 07:52:22 LV 127/3, 14 07:59:42 LV 118/1, 14 07:59:49 LV 104/1, 12 08:00:55 LVp 114/0, 16 08:00:59 AOp 109/55 (76) 08:01:04 RM AIR REST 08:59:00 Signed By Lm Cantrell MD On 12/20/2017 09:03:36 Lm Cantrell MD
== END 2017-12-21 10:30 | disposition home or self-care (01) ==
LOC: ED 16:23 → PCU 17:11 → ICU 12-20 08:44
PROVIDERS: Internal Medicine Cardiovascular Disease; Admitting Provider Internal Medicine Cardiovascular Disease; Emergency Provider Emergency Medicine; Family Provider Internal Medicine; PCP Internal Medicine; Visit Provider Internal Medicine Cardiovascular Disease
DX: I21.4 Non-ST elevation (NSTEMI) myocardial infarction (principal); I25.110 Atherosclerotic heart disease of native coronary artery with unstable angina pectoris; I10 Essential (primary) hypertension; E78.5 Hyperlipidemia, unspecified; D69.6 Thrombocytopenia, unspecified; Z79.899 Other long term (current) drug therapy; Z87.891 Personal history of nicotine dependence; Z79.82 Long term (current) use of aspirin
CPT/HCPCS: 36415; 71045; 80048; 80053; 80061; 82550; 84484; 85025; 85027; 85347; 85610; 85730; 87641; 92928; 93005; 93458; 96360; 96361; 96372; 99152; 99153; 99218; 99282; J7030; A4216; C1725; C1769; C1874; C1887; C9600; G0378; Q9967

== ENCOUNTER → 2018-01-13 12:54 | Outpatient (CLI) | payer OTHER, SELFPAY ==
--- NOTE | 2018-01-13 13:01 | PCM.CR.HP2 ---
CR - History & Physical - General Arrival date:: 01/13/18 Arrival time:: 13:01 Date of Admission: 12/20/17 Referring Physician: Dr. Lm Cantrell Primary Diagnosis: Z95.5,I25.10, I21.4 12/20/2017 - History of Present Cardiac Event Onset Date: Enter Onset Date of cardiac illnesses in Comment field below Angina:: Yes [place]:: Yes PTCA:: Yes - Medications Home Medications: Ambulatory Orders Medication Instructions Recorded Aspirin E.C. [Ecotrin] 81 mg PO DAILY@0800 #90 tab 12/21/17 atorvastatin 80 mg tablet 80 mg PO QHS #30 tab 01/12/18 clopidogrel 75 mg tablet 75 mg PO DAILY #30 tab 01/12/18 losartan 25 mg tablet 25 mg PO DAILY #30 tab 01/12/18 metoprolol tartrate 25 mg tablet 25 mg PO BID #60 tab 01/12/18 - Allergies Allergies/Adverse Reactions: Allergies Sulfa (Sulfonamide Antibiotics) Allergy (Verified 12/19/17 15:03) Swelling . - Sleep Disorder Evaluation Hx of Sleep Apnea: No Do you snore loudly (louder than talking or can be heard through closed doors)?: No Do you often feel tired/ fatigued/ sleepy during daytime?: No Has anyone observed you stop breathing during sleep?: No History of Hypertension (for STOP score): Yes STOP Results: Negative Advanced Directives - Advanced Directives Power of [place]: Yes Living Will: Yes Advance Directives Information Provided: Yes Advance Directives on File: Yes DNR Order?:: No Past Medical History - Problems and Co-Morbidities Problems & Co-Morbidities: Smoking - former, Dyslipidemia, Hypertension - Past Medical Illness Past Medical Illness: Arthritis - Other Other: Vision/Eye Problems, Hearing Problems - Cardiology Procedures/Interventions Cardiology Procedures/Interventions: Angioplasty, PCI w/Stenting - Past Surgical History Surgical History: no surgical history Review of Systems - Review of Systems Hints: Right click = Denies (Slash). Left click = Reports ([place]) Review of Present Symptoms: Reports: Angina, Appetite - Normal, Sleep - Normal. Denies: Shortness of Breath at Rest, Shortness of Breath with Exertion, PVD, Operative Discomfort, Wound Healing, Dizziness/Lightheadedness, Fatigue, Heart Arrhythmia/Irregularities, Appetite - Special Diet, Sexual Changes Risk Factor Assessment - Chief Complaint Chief Complaint: CP - Pulse Pulse Rate: 63 - SPO2 94% Pulse Rhythm: Regular - Hypertension How long have you been treated?: 1 month Blood Pressure Sitting - Left Arm: 112/66 - Diabetes Nutrition Referral for Diabetes: No - Obesity Height: 1.75 m Weight:: 81.647 kg Weight in Pounds: 180.0 lbs Body Mass Index (BMI): 26.6 Nutritional Referral for Obesity: No - Physical Inactivity Physical Inactivity: Reg Exercise 30 min/day, Physically demanding job, Recreational activity - Risk Stratification Risk Guidelines: Lowest Risk: Risk Factor for Sedentary Lifestyle, Risk Factor for Depression, Moderate Risk: Risk Factor for Smoking, Risk Factor for Dyslipidemia, Risk Factor for Diabetes, Risk Factor for Obesity, Risk Factor for Hypertension - For Smoking Smoking Risk Guidelines: Smoking Low Risk: None or quit greater than 6 months ago. Smoking Moderate Risk: Smoker or quit 6 months or less ago. Smoking High Risk: Smoker - For Dyslipidemia Dyslipidemia Risk Guidelines: Low Risk: Moderate Risk: High Risk: 15-25% fat 25.1-29% fat >/= 30% fat. <7% sat fat 7-9% sat fat >9% sat fat. <150 mg chol 150-299 mg chol >/= 300 mg chol. LDL <100 LDL 100-129 LDL >/= 130. Chol/HDL ratio <5.0 Chol/HDL ratio 5.0-6.0 Chol/HDL ratio >6.0. Triglycerides <100 Triglycerides 100-149 Triglycerides >/= 150 - For Diabetes Mellitus Diabetes Risk Guidelines: Diabetes Low Risk: HgA1c <6.5% and/or FBG <120. Diabetes Moderate Risk: HgA1c 6.6-7.9% and/or FBG 120-180. Diabetes High Risk: HgA1c >/= 8% and/or FBG >180 - For Obesity/Overweight Obesity/Overweight Risk Guidelines: Obesity Low Risk: BMI <25.0. Obesity Moderate Risk: BMI 25-29.9. Obesity High Risk: BMI >/= 30.0 - For Hypertension Hypertension Risk Guidelines: Hypertension Low Risk: Systolic <120 and Diastolic <80. Hypertension Moderate Risk: Systolic 120-139 and Diastolic 80-89. Hypertension High Risk: Systolic >/= 140 and Diastolic >/= 90 - For Sedentary Lifestyle Sedentary Lifestyle Risk Guidelines: Sedentary Lifestyle Low Risk: >/= 1,500 kcal/week. Sedentary Lifestyle Moderate Risk: 700-1,499 kcal/week. Sedentary Lifestyle High Risk: < 700 kcal/week - For Depression Depression Risk Guidelines: Depression Low Risk: Not clinically depressed. Depression Moderate Risk: Mildly depressed. 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
--- NOTE | 2018-01-13 13:12 | CR.HP_ITS ---
CR - History & Physical - General Arrival date:: 01/13/18 Arrival time:: 13:01 Date of Admission: 12/20/17 Referring Physician: Dr. Lm Cantrell Primary Diagnosis: Z95.5,I25.10, I21.4 12/20/2017 - History of Present Cardiac Event Onset Date: Enter Onset Date of cardiac illnesses in Comment field below Angina:: Yes [place]:: Yes PTCA:: Yes - Medications Home Medications: Ambulatory Orders Medication Instructions Recorded Aspirin E.C. [Ecotrin] 81 mg PO DAILY@0800 #90 tab 12/21/17 atorvastatin 80 mg tablet 80 mg PO QHS #30 tab 01/12/18 clopidogrel 75 mg tablet 75 mg PO DAILY #30 tab 01/12/18 losartan 25 mg tablet 25 mg PO DAILY #30 tab 01/12/18 metoprolol tartrate 25 mg tablet 25 mg PO BID #60 tab 01/12/18 - Allergies Allergies/Adverse Reactions: Allergies Sulfa (Sulfonamide Antibiotics) Allergy (Verified 12/19/17 15:03) Swelling . - Sleep Disorder Evaluation Hx of Sleep Apnea: No Do you snore loudly (louder than talking or can be heard through closed doors)? : No Do you often feel tired/ fatigued/ sleepy during daytime?: No Has anyone observed you stop breathing during sleep?: No History of Hypertension (for STOP score): Yes STOP Results: Negative Advanced Directives - Advanced Directives Power of Evening Anchor: Yes Living Will: Yes Advance Directives Information Provided: Yes Advance Directives on File: Yes DNR Order?:: No Past Medical History - Problems and Co-Morbidities Problems & Co-Morbidities: Smoking - former, Dyslipidemia, Hypertension - Past Medical Illness Past Medical Illness: Arthritis - Other Other: Vision/Eye Problems, Hearing Problems - Cardiology Procedures/Interventions Cardiology Procedures/Interventions: Angioplasty, PCI w/Stenting - Past Surgical History Surgical History: no surgical history Review of Systems - Review of Systems Hints: Right click = Denies (Slash). Left click = Reports ([place]) Review of Present Symptoms: Reports: Angina, Appetite - Normal, Sleep - Normal. Denies: Shortness of Breath at Rest, Shortness of Breath with Exertion, PVD, Operative Discomfort, Wound Healing, Dizziness/Lightheadedness, Fatigue, Heart Arrhythmia/Irregularities, Appetite - Special Diet, Sexual Changes Risk Factor Assessment - Chief Complaint Chief Complaint: CP - Pulse Pulse Rate: 63 - SPO2 94% Pulse Rhythm: Regular - Hypertension How long have you been treated?: 1 month Blood Pressure Sitting - Left Arm: 112/66 - Diabetes Nutrition Referral for Diabetes: No - Obesity Height: 1.75 m Weight:: 81.647 kg Weight in Pounds: 180.0 lbs Body Mass Index (BMI): 26.6 Nutritional Referral for Obesity: No - Physical Inactivity Physical Inactivity: Reg Exercise 30 min/day, Physically demanding job, Recreational activity - Risk Stratification Risk Guidelines: Lowest Risk: Risk Factor for Sedentary Lifestyle, Risk Factor for Depression, Moderate Risk: Risk Factor for Smoking, Risk Factor for Dyslipidemia, Risk Factor for Diabetes, Risk Factor for Obesity, Risk Factor for Hypertension - For Smoking Smoking Risk Guidelines: Smoking Low Risk: None or quit greater than 6 months ago. Smoking Moderate Risk: Smoker or quit 6 months or less ago. Smoking High Risk: Smoker - For Dyslipidemia Dyslipidemia Risk Guidelines: Low Risk: Moderate Risk: High Risk: 15-25% fat 25.1-29% fat >/= 30% fat. <7% sat fat 7-9% sat fat >9% sat fat. <150 mg chol 150-299 mg chol >/= 300 mg chol. LDL <100 LDL 100-129 LDL >/= 130. Chol/HDL ratio <5.0 Chol/HDL ratio 5.0-6.0 Chol/HDL ratio >6.0. Triglycerides <100 Triglycerides 100-149 Triglycerides >/= 150 - For Diabetes Mellitus Diabetes Risk Guidelines: Diabetes Low Risk: HgA1c <6.5% and/or FBG <120. Diabetes Moderate Risk: HgA1c 6.6-7.9% and/or FBG 120-180. Diabetes High Risk: HgA1c >/= 8% and/or FBG >180 - For Obesity/Overweight Obesity/Overweight Risk Guidelines: Obesity Low Risk: BMI <25.0. Obesity Moderate Risk: BMI 25-29.9. Obesity High Risk: BMI >/= 30.0 - For Hypertension Hypertension Risk Guidelines: Hypertension Low Risk: Systolic <120 and Diastolic <80. Hypertension Moderate Risk: Systolic 120-139 and Diastolic 80-89. Hypertension High Risk: Systolic >/= 140 and Diastolic >/= 90 - For Sedentary Lifestyle Sedentary Lifestyle Risk Guidelines: Sedentary Lifestyle Low Risk: >/= 1 ,500 kcal/week. Sedentary Lifestyle Moderate Risk: 700-1,499 kcal/week. Sedentary Lifestyle High Risk: < 700 kcal/week - For Depression Depression Risk Guidelines: Depression Low Risk: Not clinically depressed. Depression Moderate Risk: Mildly depressed. 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
--- NOTE | 2018-01-13 13:14 | CR.ITP_ITS ---
Exercise - Initial Assessment - Visit Date of Eval: 01/13/18 - initial visit - Stages of Change Stages of Change:: Contemplate - Exercise Prescription Mode:: Treadmill, Biodyne, Rower, Airdyne, NuStep, Arm Ergometer Angina with exercise?: No - Hypertension Do any of the following apply?: Yes Resting Blood Pressure:: 112/66 - Intervention Home Exercise/Activity Goal:: Sitting Time <3 hrs/day - Education Goals:: Warm-up, RPE KUSUM Scale, S/S, Safe Exercise, Self-Monitoring - Exercise Program Goals Exercise Program Goals: Aerobic Activity >30 min, B/P <140/90 Nutrition - Initial Assessment - Program Goals Nutrition Program Goals: LDL <70. Total Cholesterol <200. HDL >45. Triglycerides <150. HgbA1C <7%. BMI <25 - Visit Date of Assessment:: 01/13/18 - Stages of Change Stages of Change:: Contemplate - Diabetes Diabetes:: No - Weight Management Height: 1.75 m Weight:: 81.647 kg Total Score:: 0 - Intervention Referral to dietitian:: No Referral to Diabetic Clinic:: No - Education Gave educational materials for:: Signs & symptoms of hypoglycemia, Signs & symptoms of hyperglycemia, Relate diabetes to coronary artery disease, Healthy eating Tobacco - Initial Assessment - Program Goals Tobacco Program Goals: Complete smoking cessation. Attend education classes. Improve Knowledge Test score - Stage of Change Stages of Change:: Contemplate - Learning Barriers Learning Barriers: Hearing, Vision Total Score:: 7 - Family Support Do you have family support?: Yes - Tobacco Use How long ago did you quit using tobacco products?: Greater than or equal to 6 months ago Do you use smokeless tobacco?: No - Intervention Smoking Cessation Referral:: No Individual Education/Counseling:: No Education Schedule Given:: Yes - Education Gave educational material for:: Tobacco triggers, Coronary artery disease, Risk factors, Sexuality, Medical compliance, Cardiac A&P, Angina signs & symptoms Psychosocial - Initial Assess - Target Goals Target Goals: Assess presence or absence of depression. Using a valid screening tool, maximizes coping skills. Positive support system - Stages of Change Stages of Change:: Contemplate - Psychosocial Test Tool Used:: HANDS Depression Questionnaire Total Mood Screening Score:: 4 Self-Efficacy Score:: 6 - Intervention PS - Interventions: Yes Attend Stress Management Classes, Yes Uses Stress Management Skills, No Referral to Mental Health, No Referral to [facility] Case Management, No Referral to Physician - Education Gave educational materials for:: Coping techniques, Signs & symptoms of depression, Stress management, Relaxation techniques - Assistive Devices Assistive Devices:: None Fall Risk Assessed:: Yes Patient Health Questionnaire Initial Assessment 1. Little interest or pleasure in doing things: Several days 2. Feeling down, depressed, or hopeless: Several days 3. Trouble falling or staying asleep, or sleeping too much: Not at all 4. Feeling tired or having little energy: More than half the days 5. Poor appetite or overeating: Not at all 6. Feeling bad about yourself -- or that you are a failure or have let yourself or your family down: Not at all 7. Trouble concentrating on things, such as reading the newspaper or watching television: Not at all 8. Moving or speaking so slowly that other people could have noticed. Or the opposite - being so fidgety or restless that you have been moving around a lot more than usual: Not at all 9. Thoughts that you would be better off , or of hurting yourself in some way: Not at all How difficult have these problems made it for you to do your work, take care of things at home, or get along with other people?: Not difficult at all Total Score: 4 Knowledge Test - Check your knowledge Initial The #1 cause of in the [place] each year is:: Heart disease Which of the following is a common treatment for heart disease?: All of the above The arteries that feed the heart are called:: Coronary arteries HDL cholesterol is known as the good cholesterol.: False What disease increases your risk for heart disease?: Diabetes What food product raises blood cholesterol level the most?: Saturated fat The bad cholesterol in the blood is called:: HDL Hypertension is another word for:: High stress A blood pressure reading of 148/88 is considered normal.: False Exercise will only benefit your health when your heart rate reaches a target level.: False Total Score:: 7 Self-Efficacy Initial Assessment We would like to know how confident you are in doing certain activities. Please select your confidence level for:: Select your confidence level for the following using the scale 1-10 where 1 is not at all confident and 10 is totally confident. Your score is the average of all 6 responses. Fatigue: How confident are you that you can keep the fatigue caused by your disease from interfering with the things you want to do? Select Number: 8 Physical Discomfort or Pain: How confident are you that you can keep the physical discomfort or pain of your disease from interfering with the things you want to do? Select Number: 5 Emotional Distress: How confident are you that you can keep the emotional distress caused by your disease from interfering with the things you want to do? Select Number: 7 Other Symptoms or Health Problems: How confident are you that you can keep other symptoms or health problems from interfering with the things you want to do? Select Number: 3 Different Tasks and Activities: How confident are you that you can do the different tasks and activities needed to manage your health condition so as to reduce your need to see a doctor? Select Number: 8 Medication: How confident are you that you can do things other than just taking medication to reduce how much your illness affects your everyday life? Select Number: 6 Total Score:: 6 Nutrition Survey - Nutrition Survey Instructions Scoring Instructions: Scoring is as follows: Yes = 1 points. No = 0 point. Patient score that is >/=12 is considered to be at potential nutritional risk and could benefit from a referral to a registered dietitian. - Nutrition Survey Initial Have you lost >10 lbs over the past 2 months without trying?: No Are you following a special diet at home for diabetes, low fat, or low salt?: No Are you interested in meeting with a dietitian for help understanding your diet? : No Do you eat less than 3 meals a day?: No Do you eat fatty meats (alonzo, sausage, ribs, etc), fried foods, desserts, large amounts of salad dressings, margarine, butter, or cheese most days?: No Do you have food allergies? [Enter types in comment field]: No Do you eat in restaurants more than 3 times a week?: No Do you season food with salt, seasoning salt, or garlic salt?: No Do you used canned, boxed, frozen meals, or soups, seasoning packets?: No Total Score:: 0 Cardiac Rehabilitation Goals - Cardiac Rehab Goals Cardiac Rehabilitation Goals: 1. Maintain the individual as the primary focus of care. 2. To improve the patient's quality of life. 3. Identification of cardiac risk factors and provide cardiac risk factor management. 4. Enhance the psychosocial status of the patient. 5. Reconditioning enough to allow the patient to resume customary activities. 6. Control symptoms of cardiac disease - Scale Scale for measuring improvement of personal goals: Enter appropriate number in Comments. 2 = Unchanged. 3 = Slightly Better. 4 = Moderate Improvement. 5 = Met my Goal Initial Assessment Personal Goals: 30-day Re-assessment: Improve muscle strength and endurance
[2018-01-13 13:58] VITALS: BP 112/66; PULSE 63; BMI 26.6
== END ==
PROVIDERS: Family Provider Internal Medicine; PCP Internal Medicine; Visit Provider Internal Medicine Cardiovascular Disease
DX: Z95.5 Presence of coronary angioplasty implant and graft (principal); I25.10 Atherosclerotic heart disease of native coronary artery without angina pectoris; I25.2 Old myocardial infarction

== ENCOUNTER 2018-02-10 11:30 | Outpatient (RCR) | payer OTHER, SELFPAY ==
--- NOTE | 2018-02-06 15:40 | PCM.CR.ITP ---
Exercise - Initial Assessment - Stages of Change Stages of Change:: Contemplate - Exercise Prescription Mode:: Treadmill, Biodyne, Rower, Airdyne, NuStep, Arm Ergometer Angina with exercise?: No - Hypertension Do any of the following apply?: Yes - Intervention Home Exercise/Activity Goal:: Sitting Time <3 hrs/day - Education Goals:: Warm-up, RPE KUSUM Scale, S/S, Safe Exercise, Self-Monitoring - Exercise Program Goals Exercise Program Goals: Aerobic Activity >30 min, B/P <140/90 Exercise - 30-day Assessment - Visit Date of Eval: 02/06/18 - 01/16/2018-02/03/2018 Session #:: 6 - Stages of Change Stages of Change:: Action - Exercise Prescription Mode:: Treadmill, Airdyne, NuStep Frequency (x/week): 3 Duration:: 30 METs - Progression: 0.5-1 MET as tolerated: 5.1 Target Heart Rate:: 112-120 Max HR 85 - Hypertension Resting Blood Pressure:: 120/62 Peak Exercise Blood Pressure:: 148/80 Medication Changes:: No - Intervention Home Exercise/Activity Goal:: Sitting Time <3 hrs/day - Education Goals:: Warm-up, RPE KUSUM Scale, S/S, Safe Exercise, Self-Monitoring - Exercise Program Goals Exercise Program Goals: Aerobic Activity >30 min, B/P <140/90 Exercise - Final/Discharge - Hypertension Do any of the following apply?: Yes Nutrition - Initial Assessment - Program Goals Nutrition Program Goals: LDL <70. Total Cholesterol <200. HDL >45. Triglycerides <150. HgbA1C <7%. BMI <25 - Stages of Change Stages of Change:: Contemplate - Diabetes Diabetes:: No - Weight Management Total Score:: 0 - Intervention Referral to dietitian:: No Referral to Diabetic Clinic:: No - Education Gave educational materials for:: Signs & symptoms of hypoglycemia, Signs & symptoms of hyperglycemia, Relate diabetes to coronary artery disease, Healthy eating Nutrition - 30-Day Assessment - Program Goals Nutrition Program Goals: LDL <70. Total Cholesterol <200. HDL >45. Triglycerides <150. HgbA1C <7%. BMI <25 - Visit Date of Eval: 02/06/18 - 01/16/2018-02/03/2018 - Stages of Change Stages of Change:: Action - Lipids Has the patient seen the dietitian?: No - Diabetes Diabetes:: No - Weight Management Weight:: 81.873 kg - Intervention Referral to dietitian:: No Referral to Diabetic Clinic:: No - Education Attended class for:: Signs & symptoms of hypoglycemia, Signs & symptoms of hyperglycemia, Relate diabetes to coronary artery disease, Healthy eating Nutrition - 60-Day Assessment - Program Goals Nutrition Program Goals: LDL <70. Total Cholesterol <200. HDL >45. Triglycerides <150. HgbA1C <7%. BMI <25 - Diabetes Diabetes:: No - Intervention Referral to dietitian:: No Referral to Diabetic Clinic:: No - Education Attended class for:: Signs & symptoms of hypoglycemia, Signs & symptoms of hyperglycemia, Relate diabetes to coronary artery disease, Healthy eating Nutrition - 90-Day Assessment - Program Goals Nutrition Program Goals: LDL <70. Total Cholesterol <200. HDL >45. Triglycerides <150. HgbA1C <7%. BMI <25 - Diabetes Diabetes:: No - Intervention Referral to dietitian:: No Referral to Diabetic Clinic:: No - Education Attended class for:: Signs & symptoms of hypoglycemia, Signs & symptoms of hyperglycemia, Relate diabetes to coronary artery disease, Healthy eating Nutrition - Final Assessment - Program Goals Nutrition Program Goals: LDL <70. Total Cholesterol <200. HDL >45. Triglycerides <150. HgbA1C <7%. BMI <25 - Diabetes Diabetes:: No - Weight Management Total Score:: 0 - Intervention Referral to dietitian:: No Referral to Diabetic Clinic:: No Tobacco - Initial Assessment - Program Goals Tobacco Program Goals: Complete smoking cessation. Attend education classes. Improve Knowledge Test score - Stage of Change Stages of Change:: Contemplate - Learning Barriers Learning Barriers: Hearing, Vision Total Score:: 7 - Family Support Do you have family support?: Yes - Tobacco Use How long ago did you quit using tobacco products?: Greater than or equal to 6 months ago Do you use smokeless tobacco?: No - Intervention Smoking Cessation Referral:: No Individual Education/Counseling:: No Education Schedule Given:: Yes - Education Gave educational material for:: Tobacco triggers, Coronary artery disease, Risk factors, Sexuality, Medical compliance, Cardiac A&P, Angina signs & symptoms Tobacco - 30-Day Assessment - Program Goals Tobacco Program Goals: Complete smoking cessation. Attend education classes. Improve Knowledge Test score - Stage of Change Stages of Change:: Action - Learning Barriers Learning Barriers: Participates in education - Family Support Do you have family support?: Yes - Tobacco Use Tobacco Use: Non-smoker Do you use smokeless tobacco?: No - Intervention Smoking Cessation Referral:: No Individual Education/Counseling:: No Education Schedule Given:: Yes - Education Attended class for:: Tobacco triggers, Coronary artery disease, Risk factors, Sexuality, Medical compliance, Cardiac A&P, Angina signs & symptoms Tobacco - 60-Day Assessment - Program Goals Tobacco Program Goals: Complete smoking cessation. Attend education classes. Improve Knowledge Test score - Family Support Do you have family support?: Yes - Tobacco Use Do you use smokeless tobacco?: No - Intervention Smoking Cessation Referral:: No Individual Education/Counseling:: No Education Schedule Given:: Yes - Education Attended class for:: Tobacco triggers, Coronary artery disease, Risk factors, Sexuality, Medical compliance, Cardiac A&P, Angina signs & symptoms Tobacco - 90-Day Assessment - Program Goals Tobacco Program Goals: Complete smoking cessation. Attend education classes. Improve Knowledge Test score - Family Support Do you have family support?: Yes - Tobacco Use Do you use smokeless tobacco?: No - Intervention Smoking Cessation Referral:: No Individual Education/Counseling:: No Education Schedule Given:: Yes - Education Attended class for:: Tobacco triggers, Coronary artery disease, Risk factors, Sexuality, Medical compliance, Cardiac A&P, Angina signs & symptoms Tobacco - Final Assessment - Program Goals Tobacco Program Goals: Complete smoking cessation. Attend education classes. Improve Knowledge Test score - Learning Barriers Cardiac Knowledge Test Score:: 7 - Family Support Do you have family support?: Yes - Tobacco Use Do you use smokeless tobacco?: No - Intervention Smoking Cessation Referral:: No Individual Education/Counseling:: No Education Schedule Given:: Yes Psychosocial - Initial Assess - Target Goals Target Goals: Assess presence or absence of depression. Using a valid screening tool, maximizes coping skills. Positive support system - Stages of Change Stages of Change:: Contemplate - Psychosocial Test Tool Used:: HANDS Depression Questionnaire Total Mood Screening Score:: 4 Self-Efficacy Score:: 6 - Intervention PS - Interventions: Yes Attend Stress Management Classes, Yes Uses Stress Management Skills, No Referral to Mental Health, No Referral to [facility] Case Management, No Referral to Physician - Education Gave educational materials for:: Coping techniques, Signs & symptoms of depression, Stress management, Relaxation techniques - Assistive Devices Assistive Devices:: None Fall Risk Assessed:: Yes Psychosocial - 30-Day Assess - Target Goals Target Goals: Assess presence or absence of depression. Using a valid screening tool, maximizes coping skills. Positive support system - Stages of Change Stages of Change:: Action - Psychosocial Test Tool Used:: HANDS Depression Questionnaire Total Mood Screening Score:: 4 Self-Efficacy Score:: 6 - Intervention PS - Interventions: Yes Attend Stress Management Classes, Yes Uses Stress Management Skills, No Referral to Mental Health, No Referral to [facility] Case Management, No Referral to Physician - Education Attended classes for:: Stress management, Relaxation techniques - Assistive Devices Assistive Devices:: None Fall Risk Assessed:: Yes Psychosocial - 60-Day Assess - Target Goals Target Goals: Assess presence or absence of depression. Using a valid screening tool, maximizes coping skills. Positive support system - Psychosocial Test Tool Used:: HANDS Depression Questionnaire Total Mood Screening Score:: 4 Self-Efficacy Score:: 6 - Education Attended classes for:: Coping techniques, Signs & symptoms of depression, Stress management, Relaxation techniques - Assistive Devices Assistive Devices:: None Fall Risk Assessed:: Yes Psychosocial - 90-Day Assess - Target Goals Target Goals: Assess presence or absence of depression. Using a valid screening tool, maximizes coping skills. Positive support system - Psychosocial Test Tool Used:: HANDS Depression Questionnaire Total Mood Screening Score:: 4 Self-Efficacy Score:: 6 - Education Attended classes for:: Coping techniques, Signs & symptoms of depression, Stress management, Relaxation techniques - Assistive Devices Assistive Devices:: None Fall Risk Assessed:: Yes Psychosocial - Final Assessmen - Target Goals Target Goals: Assess presence or absence of depression. Using a valid screening tool, maximizes coping skills. Positive support system - Psychosocial Test Tool Used:: HANDS Depression Questionnaire Total Mood Screening Score:: 4 Self-Efficacy Score:: 6 - Assistive Devices Assistive Devices:: None Fall Risk Assessed:: Yes Patient Health Questionnaire 30-Day Re-eval Assessment 1. Little interest or pleasure in doing things: Not at all 2. Feeling down, depressed, or hopeless: Not at all 3. Trouble falling or staying asleep, or sleeping too much: Not at all 4. Feeling tired or having little energy: Several days 5. Poor appetite or overeating: Not at all 6. Feeling bad about yourself -- or that you are a failure or have let yourself or your family down: Not at all 7. Trouble concentrating on things, such as reading the newspaper or watching television: Not at all 8. Moving or speaking so slowly that other people could have noticed. Or the opposite - being so fidgety or restless that you have been moving around a lot more than usual: Not at all 9. Thoughts that you would be better off , or of hurting yourself in some way: Not at all How difficult have these problems made it for you to do your work, take care of things at home, or get along with other people?: Not difficult at all Total Score: 1 Self-Efficacy 30-Day Re-eval Assessment We would like to know how confident you are in doing certain activities. Please select your confidence level for:: Select your confidence level for the following using the scale 1-10 where 1 is not at all confident and 10 is totally confident. Your score is the average of all 6 responses. Fatigue: How confident are you that you can keep the fatigue caused by your disease from interfering with the things you want to do? Select Number: 8 Physical Discomfort or Pain: How confident are you that you can keep the physical discomfort or pain of your disease from interfering with the things you want to do? Select Number: 8 Emotional Distress: How confident are you that you can keep the emotional distress caused by your disease from interfering with the things you want to do? Select Number: 8 Other Symptoms or Health Problems: How confident are you that you can keep other symptoms or health problems from interfering with the things you want to do? Select Number: 8 Different Tasks and Activities: How confident are you that you can do the different tasks and activities needed to manage your health condition so as to reduce your need to see a doctor? Select Number: 8 Medication: How confident are you that you can do things other than just taking medication to reduce how much your illness affects your everyday life? Select Number: 8 Total Score:: 8 Cardiac Rehabilitation Goals - Cardiac Rehab Goals Cardiac Rehabilitation Goals: 1. Maintain the individual as the primary focus of care. 2. To improve the patient's quality of life. 3. Identification of cardiac risk factors and provide cardiac risk factor management. 4. Enhance the psychosocial status of the patient. 5. Reconditioning enough to allow the patient to resume customary activities. 6. Control symptoms of cardiac disease - Scale Scale for measuring improvement of personal goals: Enter appropriate number in Comments. 2 = Unchanged. 3 = Slightly Better. 4 = Moderate Improvement. 5 = Met my Goal 30-Day Re-eval Assessment Personal Goals: 60-day Re-assessment: Improve energy level, Get back to work, or to resume activities faster, Improve muscle strength and endurance
[2018-02-06 15:44] VITALS: BP 120/62; BP 148/80
== END 2018-02-11 23:59 ==
LOC: CR 11:30
PROVIDERS: Family Provider Internal Medicine; PCP Internal Medicine; Visit Provider Internal Medicine Cardiovascular Disease
DX: I25.10 Atherosclerotic heart disease of native coronary artery without angina pectoris (principal); I25.2 Old myocardial infarction; Z95.5 Presence of coronary angioplasty implant and graft
CPT/HCPCS: 93798

== ENCOUNTER 2018-03-13 11:30 | Outpatient (RCR) | payer OTHER, SELFPAY ==
[2018-02-12 01:06] VITALS: BP 120/62; BP 148/80
[2018-03-06 13:22] VITALS: BP 128/60; BP 144/80
--- NOTE | 2018-03-06 13:24 | CR.ITP_ITS ---
General Information - General Information Admitting Diagnosis: Coronary stent placement, NSTEMI - Education/Goals Barriers to Learning: Vision Impairment Individual Counseling: Initial Assessment: Abnormal Cholesterol Levels, High Blood Pressure, Hypertension, 30-Day Assessment: Abnormal Cholesterol Levels, High Blood Pressure, Hypertension, 60-Day Assessment: Abnormal Cholesterol Levels, High Blood Pressure, Hypertension Cardiac Rehabilitation Goals: 1. Maintain the individual as the primary focus of care. 2. To improve the patient's quality of life. 3. Identification of cardiac risk factors and provide cardiac risk factor management. 4. Enhance the psychosocial status of the patient. 5. Reconditioning enough to allow the patient to resume customary activities. 6. Control symptoms of cardiac disease Scale for measuring improvement of personal goals: Enter appropriate number in Comments. 2 = Unchanged. 3 = Slightly Better. 4 = Moderate Improvement. 5 = Met my Goal Personal Goals: Initial Assessment: Improve energy level, Improve knowledge of cardiac disease, Improve muscle strength and endurance, 30-day Re-assessment: Improve energy level, Improve knowledge of cardiac disease, Improve muscle strength and endurance, 60-day Re-assessment: Improve energy level, Improve knowledge of cardiac disease, Improve muscle strength and endurance Exercise - 60-Day Assessment - Visit Date of Eval: 03/06/18 Session #:: 19 - Stages of Change Stages of Change:: Action - Exercise Prescription Mode:: Treadmill, Rower, Airdyne, NuStep Frequency (x/week): 3 Duration:: 35 METs: 7 Target Heart Rate:: 112-120 - Hypertension Resting Blood Pressure:: 128/60 Peak Exercise Blood Pressure:: 144/80 Medication Changes:: No - Intervention Home Exercise/Activity Goal:: Moderate Exercise 30 min/day x 5 days/wk - Education Goals:: Warm-up, RPE KUSUM Scale, S/S, Safe Exercise, Self-Monitoring Nutrition - 60-Day Assessment - Program Goals Nutrition Program Goals: LDL <70. Total Cholesterol <200. HDL >45. Triglycerides <150. HgbA1C <7%. BMI <25 - Visit Date of Eval: 03/06/18 - Stages of Change Stages of Change:: Action - Lipids Has the patient seen the dietitian?: No - Diabetes Diabetes:: No - Weight Management Weight:: 179 lb - Intervention Referral to dietitian:: No Will attend diet classes:: Yes - Education Attended class for:: Healthy eating Tobacco - Initial Assessment - Program Goals Tobacco Program Goals: Complete smoking cessation. Attend education classes. Improve Knowledge Test score - Learning Barriers Learning Barriers: Hearing, Vision Tobacco - 60-Day Assessment - Program Goals Tobacco Program Goals: Complete smoking cessation. Attend education classes. Improve Knowledge Test score - Stage of Change Stages of Change:: Action - Learning Barriers Learning Barriers: Participates in education - Family Support Do you have family support?: Yes - Tobacco Use Tobacco Use: Non-smoker Do you use smokeless tobacco?: No - Intervention Education Schedule Given:: Yes - Education Attended class for:: Coronary artery disease, Risk factors, Sexuality, Medical compliance, Cardiac A&P, Angina signs & symptoms Psychosocial - Initial Assess - Target Goals Target Goals: Assess presence or absence of depression. Using a valid screening tool, maximizes coping skills. Positive support system - Psychosocial Test Tool Used:: HANDS Depression Questionnaire - Assistive Devices Fall Risk Assessed:: Yes Psychosocial - 60-Day Assess - Target Goals Target Goals: Assess presence or absence of depression. Using a valid screening tool, maximizes coping skills. Positive support system - Stages of Change Stages of Change:: Action - Psychosocial Test Tool Used:: HANDS Depression Questionnaire Self-reported stress:: no - Intervention PS - Interventions: Yes Attend Stress Management Classes, Yes Uses Stress Management Skills, No Referral to Mental Health, No Referral to [facility] Case Management, No Referral to Physician - Education Attended classes for:: Coping techniques, Signs & symptoms of depression, Stress management, Relaxation techniques - Patient/Program Goal Preventative Medication(s):: Aspirin, Clopidogrel, Beta juanis, Statin/lipid - Assistive Devices Assistive Devices:: None Fall Risk Assessed:: Yes Patient Health Questionnaire 60-Day Re-eval Assessment 1. Little interest or pleasure in doing things: Not at all 2. Feeling down, depressed, or hopeless: Not at all 3. Trouble falling or staying asleep, or sleeping too much: Not at all 4. Feeling tired or having little energy: Not at all 5. Poor appetite or overeating: Not at all 6. Feeling bad about yourself -- or that you are a failure or have let yourself or your family down: Not at all 7. Trouble concentrating on things, such as reading the newspaper or watching television: Not at all 8. Moving or speaking so slowly that other people could have noticed. Or the opposite - being so fidgety or restless that you have been moving around a lot more than usual: Not at all 9. Thoughts that you would be better off , or of hurting yourself in some way: Not at all Total Score: 0 Self-Efficacy 60-Day Re-eval Assessment We would like to know how confident you are in doing certain activities. Please select your confidence level for:: Select your confidence level for the following using the scale 1-10 where 1 is not at all confident and 10 is totally confident. Your score is the average of all 6 responses. Fatigue: How confident are you that you can keep the fatigue caused by your disease from interfering with the things you want to do? Select Number: 9 Physical Discomfort or Pain: How confident are you that you can keep the physical discomfort or pain of your disease from interfering with the things you want to do? Select Number: 10 Emotional Distress: How confident are you that you can keep the emotional distress caused by your disease from interfering with the things you want to do? Select Number: 10 Other Symptoms or Health Problems: How confident are you that you can keep other symptoms or health problems from interfering with the things you want to do? Select Number: 10 Different Tasks and Activities: How confident are you that you can do the different tasks and activities needed to manage your health condition so as to reduce your need to see a doctor? Select Number: 10 Medication: How confident are you that you can do things other than just taking medication to reduce how much your illness affects your everyday life? Select Number: 10 Total Score:: 9
== END 2018-03-13 23:59 ==
LOC: CR 11:30
PROVIDERS: Family Provider Internal Medicine; PCP Internal Medicine; Visit Provider Internal Medicine Cardiovascular Disease
DX: I25.10 Atherosclerotic heart disease of native coronary artery without angina pectoris (principal); I25.2 Old myocardial infarction; Z95.5 Presence of coronary angioplasty implant and graft
CPT/HCPCS: 93798

== ENCOUNTER 2018-04-12 11:30 | Outpatient (RCR) | payer OTHER, SELFPAY ==
[2018-03-14 00:51] VITALS: BP 128/60; BP 144/80
--- NOTE | 2018-04-05 09:23 | PCM.CR.ITP ---
General Information - General Information Admitting Diagnosis: NSTEMI w/PCI coronary stenting - Education/Goals Barriers to Learning: None Cardiac Rehabilitation Goals: 1. Maintain the individual as the primary focus of care. 2. To improve the patient's quality of life. 3. Identification of cardiac risk factors and provide cardiac risk factor management. 4. Enhance the psychosocial status of the patient. 5. Reconditioning enough to allow the patient to resume customary activities. 6. Control symptoms of cardiac disease Scale for measuring improvement of personal goals: Enter appropriate number in Comments. 2 = Unchanged. 3 = Slightly Better. 4 = Moderate Improvement. 5 = Met my Goal Personal Goals: Discharge Reassessment: Improve energy level, Participate in home exercise program, Improve muscle strength and endurance Exercise - 90-Day Assessment - Visit Date of Eval: 04/05/18 Session #:: 26 - Stages of Change Stages of Change:: Contemplate - Exercise Prescription Mode:: Treadmill, Rower, Airdyne, NuStep Frequency (x/week): 3 Duration:: 30 METs: 7 Target Heart Rate:: 112-120 Max HR 128 - Hypertension Resting Blood Pressure:: 108/64 Peak Exercise Blood Pressure:: 126/70 Medication Changes:: No - Intervention Home Exercise/Activity Goal:: Sitting Time <3 hrs/day - Education Goals:: Warm-up, RPE KUSUM Scale, S/S, Safe Exercise, Self-Monitoring - Exercise Program Goals Exercise Program Goals: Aerobic Activity >30 min, B/P <130/80 Nutrition - 90-Day Assessment - Program Goals Nutrition Program Goals: LDL <70. Total Cholesterol <200. HDL >45. Triglycerides <150. HgbA1C <7%. BMI <25 - Visit Date of Eval: 04/05/18 - Stages of Change Stages of Change:: Contemplate - Lipids Has the patient seen the dietitian?: No - Diabetes Diabetes:: No - Weight Management Weight:: 80.966 kg - Intervention Referral to dietitian:: No Referral to Diabetic Clinic:: No Will attend diet classes:: Yes - Education Attended class for:: Signs & symptoms of hypoglycemia, Signs & symptoms of hyperglycemia, Relate diabetes to coronary artery disease, Healthy eating Tobacco - Initial Assessment - Program Goals Tobacco Program Goals: Complete smoking cessation. Attend education classes. Improve Knowledge Test score - Learning Barriers Learning Barriers: Hearing, Vision Tobacco - 90-Day Assessment - Program Goals Tobacco Program Goals: Complete smoking cessation. Attend education classes. Improve Knowledge Test score - Stage of Change Stages of Change:: Contemplate - Learning Barriers Learning Barriers: Participates in education - Family Support Do you have family support?: Yes - Tobacco Use Tobacco Use: Non-smoker Do you use smokeless tobacco?: No - Intervention Smoking Cessation Referral:: No Individual Education/Counseling:: No Education Schedule Given:: Yes - Education Attended class for:: Tobacco triggers, Coronary artery disease, Risk factors, Sexuality, Medical compliance, Cardiac A&P, Angina signs & symptoms Psychosocial - 90-Day Assess - Target Goals Target Goals: Assess presence or absence of depression. Using a valid screening tool, maximizes coping skills. Positive support system - Stages of Change Stages of Change:: Contemplate - Psychosocial Test Tool Used:: HANDS Depression Questionnaire - Intervention PS - Interventions: Yes Attend Stress Management Classes, Yes Uses Stress Management Skills, No Referral to Mental Health, No Referral to [facility] Case Management, No Referral to Physician - Education Attended classes for:: Coping techniques, Signs & symptoms of depression, Stress management, Relaxation techniques - Assistive Devices Assistive Devices:: None Fall Risk Assessed:: Yes Patient Health Questionnaire 90-Day Re-eval Assessment 1. Little interest or pleasure in doing things: Not at all 2. Feeling down, depressed, or hopeless: Not at all 3. Trouble falling or staying asleep, or sleeping too much: Not at all 4. Feeling tired or having little energy: Not at all 5. Poor appetite or overeating: Not at all 6. Feeling bad about yourself -- or that you are a failure or have let yourself or your family down: Not at all 7. Trouble concentrating on things, such as reading the newspaper or watching television: Not at all 8. Moving or speaking so slowly that other people could have noticed. Or the opposite - being so fidgety or restless that you have been moving around a lot more than usual: Not at all 9. Thoughts that you would be better off , or of hurting yourself in some way: Not at all How difficult have these problems made it for you to do your work, take care of things at home, or get along with other people?: Not difficult at all Total Score: 0 Self-Efficacy 90-Day Re-eval Assessment We would like to know how confident you are in doing certain activities. Please select your confidence level for:: Select your confidence level for the following using the scale 1-10 where 1 is not at all confident and 10 is totally confident. Your score is the average of all 6 responses. Fatigue: How confident are you that you can keep the fatigue caused by your disease from interfering with the things you want to do? Select Number: 10 Physical Discomfort or Pain: How confident are you that you can keep the physical discomfort or pain of your disease from interfering with the things you want to do? Select Number: 10 Emotional Distress: How confident are you that you can keep the emotional distress caused by your disease from interfering with the things you want to do? Select Number: 10 Other Symptoms or Health Problems: How confident are you that you can keep other symptoms or health problems from interfering with the things you want to do? Select Number: 10 Different Tasks and Activities: How confident are you that you can do the different tasks and activities needed to manage your health condition so as to reduce your need to see a doctor? Select Number: 10 Medication: How confident are you that you can do things other than just taking medication to reduce how much your illness affects your everyday life? Select Number: 10 Total Score:: 10
[2018-04-05 09:31] VITALS: BP 108/64; BP 126/70
== END 2018-04-13 23:59 ==
LOC: CR 11:30
PROVIDERS: Family Provider Internal Medicine; PCP Internal Medicine; Visit Provider Internal Medicine Cardiovascular Disease
DX: I25.10 Atherosclerotic heart disease of native coronary artery without angina pectoris (principal); I25.2 Old myocardial infarction; Z95.5 Presence of coronary angioplasty implant and graft
CPT/HCPCS: 93798

== ENCOUNTER → 2018-04-27 11:52 | Outpatient (CLI) | payer OTHER, SELFPAY | PROVIDERS: Visit Provider Physician Assistant Medical | DX: I25.10 Atherosclerotic heart disease of native coronary artery without angina pectoris (principal); R06.00 Dyspnea, unspecified; R06.09 Other forms of dyspnea | CPT/HCPCS: 36415; 83880 ==

== ENCOUNTER → 2018-05-05 05:47 | Outpatient (CLI) | payer OTHER, SELFPAY ==
--- NOTE | 2018-05-05 09:00 | STRESSREP ---
Stress Test Report Exercise myocardial perfusion stress test. 72-year-old man with a history of coronary artery disease non-ST elevation myocardial infarction in December 2017. Medications aspirin atorvastatin Plavix losartan and metoprolol. Stress protocol: Resting EKG demonstrates sinus bradycardia with a rate of 56 bpm normal intervals and noted resting blood pressure 122/80 mmHg. Patient exercised according to the regular Tony protocol for total duration of 9 minutes and 30 seconds the maximum heart rate attained was 134 bpm which was 89% of maximum predicted heart rate the maximum workload was 14.9 metabolic equivalents. At rest there were no ST or T-wave changes noted suggest ischemia peak exercise upsloping ST changes only were noted we did not meet the criteria for ischemia. The resting blood pressure 122/80 mmHg with a peak blood pressure 146/78 mmHg rate pressure product was 17,200. No clinical angina was noted. Myocardial perfusion protocol: 11.2 mCi of technetium 99m sestamibi was injected at rest. The patient exercised according to regular Tony protocol for 9 minutes and 30 seconds attaining 89% of maximum predicted heart rate and a workload of 14.9 metabolic equivalents at peak exercise 36.0 mCi of technetium 99m sestamibi was injected. Stress images were obtained stress and rest images were reconstructed and compared in the short axis vertical long and horizontal long axis. Gated images were also obtained Perfusion SPECT analysis: Review of the stress images demonstrate normal uptake of tracer noted in all areas of the myocardium. The resting images similarly demonstrate normal uptake of tracer noted in all areas of the myocardium. No areas of reversibility are noted suggest ischemia. Gated SPECT analysis: Normal ejection fraction of 64%. Conclusion: Normal exercise myocardial perfusion stress test. Good functional aerobic capacity. Preserved ejection fraction.
== END ==
PROVIDERS: Family Provider Internal Medicine; PCP Internal Medicine; Visit Provider Physician Assistant Medical
DX: I25.10 Atherosclerotic heart disease of native coronary artery without angina pectoris (principal); R06.09 Other forms of dyspnea
CPT/HCPCS: 78452; 93017; A9500; A4216

== ENCOUNTER 2018-05-12 11:30 | Outpatient (RCR) | payer OTHER, SELFPAY ==
[2018-04-14 00:45] VITALS: BP 108/64; BP 126/70
--- NOTE | 2018-05-05 11:57 | PCM.CR.ITP ---
General Information - General Information Admitting Diagnosis: PCI with coronary stenting - Education/Goals Cardiac Rehabilitation Goals: 1. Maintain the individual as the primary focus of care. 2. To improve the patient's quality of life. 3. Identification of cardiac risk factors and provide cardiac risk factor management. 4. Enhance the psychosocial status of the patient. 5. Reconditioning enough to allow the patient to resume customary activities. 6. Control symptoms of cardiac disease Scale for measuring improvement of personal goals: Enter appropriate number in Comments. 2 = Unchanged. 3 = Slightly Better. 4 = Moderate Improvement. 5 = Met my Goal Personal Goals: Discharge Reassessment: Improve energy level, Participate in home exercise program Exercise - Final/Discharge - Visit Date of Eval: 05/05/18 Session #:: 30 - 78% compliance - Stages of Change Stages of Change:: Action - Exercise Prescription Mode:: Treadmill, Rower, Airdyne, NuStep Frequency (x/week): 3 Duration:: 30 METs: 7.5 200% increase Target Heart Rate:: 112-120 max 131 - Hypertension Resting Blood Pressure:: 108/80 Peak Exercise Blood Pressure:: 154/72 - Intervention Home Exercise/Activity Goal:: Sitting Time <3 hrs/day - Education Goal Progress: Progressing - Exercise Program Goals Exercise Program Goals: Aerobic Activity >30 min Nutrition - Final Assessment - Program Goals Nutrition Program Goals: LDL <70. Total Cholesterol <200. HDL >45. Triglycerides <150. HgbA1C <7%. BMI <25 - Visit Date of Eval: 05/05/18 - Stages of Change Stages of Change:: Action - Intervention Referral to dietitian:: No Referral to Diabetic Clinic:: No Will attend diet classes:: Yes - Education Education Goal Reached?: Yes Tobacco - Initial Assessment - Program Goals Tobacco Program Goals: Complete smoking cessation. Attend education classes. Improve Knowledge Test score - Learning Barriers Learning Barriers: Hearing, Vision Tobacco - Final Assessment - Program Goals Tobacco Program Goals: Complete smoking cessation. Attend education classes. Improve Knowledge Test score - Stage of Change Stages of Change:: Action - Family Support Do you have family support?: Yes - Tobacco Use Tobacco Use: Non-smoker Do you use smokeless tobacco?: No - Intervention Smoking Cessation Referral:: No Individual Education/Counseling:: No Education Schedule Given:: Yes - Education Education Goal Reached?: Yes Psychosocial - Initial Assess - Target Goals Target Goals: Assess presence or absence of depression. Using a valid screening tool, maximizes coping skills. Positive support system - Psychosocial Test Tool Used:: HANDS Depression Questionnaire - Assistive Devices Fall Risk Assessed:: Yes Psychosocial - Final Assessmen - Target Goals Target Goals: Assess presence or absence of depression. Using a valid screening tool, maximizes coping skills. Positive support system - Stages of Change Stages of Change:: Action - Psychosocial Test Tool Used:: HANDS Depression Questionnaire - Intervention PS - Interventions: Yes Attend Stress Management Classes, Yes Uses Stress Management Skills, No Referral to Mental Health, No Referral to [facility] Case Management, No Referral to Physician - Education Education Goal Reached?: Yes - Assistive Devices Assistive Devices:: None Fall Risk Assessed:: Yes Patient Health Questionnaire Discharge Assessment 1. Little interest or pleasure in doing things: Not at all 2. Feeling down, depressed, or hopeless: Not at all 3. Trouble falling or staying asleep, or sleeping too much: Not at all 4. Feeling tired or having little energy: Not at all 5. Poor appetite or overeating: Not at all 6. Feeling bad about yourself -- or that you are a failure or have let yourself or your family down: Not at all 7. Trouble concentrating on things, such as reading the newspaper or watching television: Not at all 8. Moving or speaking so slowly that other people could have noticed. Or the opposite - being so fidgety or restless that you have been moving around a lot more than usual: Not at all 9. Thoughts that you would be better off , or of hurting yourself in some way: Not at all How difficult have these problems made it for you to do your work, take care of things at home, or get along with other people?: Not difficult at all Total Score: 0 Self-Efficacy Discharge Assessment We would like to know how confident you are in doing certain activities. Please select your confidence level for:: Select your confidence level for the following using the scale 1-10 where 1 is not at all confident and 10 is totally confident. Your score is the average of all 6 responses. Fatigue: How confident are you that you can keep the fatigue caused by your disease from interfering with the things you want to do? Select Number: 10 Physical Discomfort or Pain: How confident are you that you can keep the physical discomfort or pain of your disease from interfering with the things you want to do? Select Number: 10 Emotional Distress: How confident are you that you can keep the emotional distress caused by your disease from interfering with the things you want to do? Select Number: 10 Other Symptoms or Health Problems: How confident are you that you can keep other symptoms or health problems from interfering with the things you want to do? Select Number: 10 Different Tasks and Activities: How confident are you that you can do the different tasks and activities needed to manage your health condition so as to reduce your need to see a doctor? Select Number: 10 Medication: How confident are you that you can do things other than just taking medication to reduce how much your illness affects your everyday life? Select Number: 10 Total Score:: 10 Nutrition Survey - Nutrition Survey Instructions Scoring Instructions: Scoring is as follows: Yes = 1 points. No = 0 point. Patient score that is >/=12 is considered to be at potential nutritional risk and could benefit from a referral to a registered dietitian. - Nutrition Survey Discharge Have you lost >10 lbs over the past 2 months without trying?: No Are you following a special diet at home for diabetes, low fat, or low salt?: No Are you interested in meeting with a dietitian for help understanding your diet?: No Do you eat less than 3 meals a day?: Yes Do you eat fatty meats (alonzo, sausage, ribs, etc), fried foods, desserts, large amounts of salad dressings, margarine, butter, or cheese most days?: No Do you have food allergies? [Enter types in comment field]: No Do you eat in restaurants more than 3 times a week?: No Do you season food with salt, seasoning salt, or garlic salt?: Yes Do you used canned, boxed, frozen meals, or soups, seasoning packets?: Yes Total Score:: 3
[2018-05-05 12:01] VITALS: BP 108/80; BP 154/72
== END 2018-05-13 23:59 ==
LOC: CR 11:30
PROVIDERS: Family Provider Internal Medicine; PCP Internal Medicine; Visit Provider Internal Medicine Cardiovascular Disease
DX: I25.10 Atherosclerotic heart disease of native coronary artery without angina pectoris (principal)
CPT/HCPCS: 93798

== ENCOUNTER 2018-05-19 11:30 | Outpatient (RCR) | payer OTHER, SELFPAY ==
[2018-05-14 00:40] VITALS: BP 108/80; BP 154/72
--- NOTE | 2018-06-06 12:13 | PCM.CR.ITP ---
Exercise - Final/Discharge - Visit Date of Eval: 05/19/18 - Discharge Report Session #:: 36 - Stages of Change Stages of Change:: Action - Exercise Prescription Mode:: Treadmill, Rower, Airdyne, NuStep Frequency (x/week): 3 Duration:: 30 METs: 8 Target Heart Rate:: 112-120 - Hypertension Do any of the following apply?: Yes Resting Blood Pressure:: 130/64 - optimal management Peak Exercise Blood Pressure:: 132/76 - Intervention Home Exercise/Activity Goal:: Moderate Exercise 30 min/day x 5 days/wk - Education Goal Progress: Goal Met - Exercise Program Goals Exercise Program Goals: Aerobic Activity >30 min Nutrition - Final Assessment - Program Goals Nutrition Program Goals: LDL <70. Total Cholesterol <200. HDL >45. Triglycerides <150. HgbA1C <7%. BMI <25 - Visit Date of Eval: 05/19/18 - Stages of Change Stages of Change:: Action - Diabetes Diabetes:: No - Intervention Referral to dietitian:: No Referral to Diabetic Clinic:: No Will attend diet classes:: Yes - Education Education Goal Reached?: Yes Tobacco - Initial Assessment - Program Goals Tobacco Program Goals: Complete smoking cessation. Attend education classes. Improve Knowledge Test score - Learning Barriers Learning Barriers: Hearing, Vision Tobacco - Final Assessment - Program Goals Tobacco Program Goals: Complete smoking cessation. Attend education classes. Improve Knowledge Test score - Stage of Change Stages of Change:: Action - Family Support Do you have family support?: Yes - Tobacco Use Tobacco Use: Non-smoker Do you use smokeless tobacco?: No - Intervention Smoking Cessation Referral:: No Individual Education/Counseling:: No Education Schedule Given:: Yes - Education Education Goal Reached?: Yes Psychosocial - Final Assessmen - Target Goals Target Goals: Assess presence or absence of depression. Using a valid screening tool, maximizes coping skills. Positive support system - Stages of Change Stages of Change:: Action - Psychosocial Test Tool Used:: HANDS Depression Questionnaire - Intervention PS - Interventions: Yes Attend Stress Management Classes, Yes Uses Stress Management Skills, No Referral to Mental Health, No Referral to [facility] Case Management, No Referral to Physician - Education Education Goal Reached?: Yes - Patient/Program Goal Preventative Medication(s):: Aspirin, Clopidogrel, Beta juanis, Statin/lipid - Assistive Devices Assistive Devices:: None Fall Risk Assessed:: Yes Patient Health Questionnaire Discharge Assessment 1. Little interest or pleasure in doing things: Not at all 2. Feeling down, depressed, or hopeless: Not at all 3. Trouble falling or staying asleep, or sleeping too much: Not at all 4. Feeling tired or having little energy: Not at all 5. Poor appetite or overeating: Not at all 6. Feeling bad about yourself -- or that you are a failure or have let yourself or your family down: Not at all 7. Trouble concentrating on things, such as reading the newspaper or watching television: Not at all 8. Moving or speaking so slowly that other people could have noticed. Or the opposite - being so fidgety or restless that you have been moving around a lot more than usual: Not at all 9. Thoughts that you would be better off , or of hurting yourself in some way: Not at all Total Score: 0 TRUNG-Q SV Test - Statements CAD is a disease of the arteries in the heart: False Examples of risk factors for heart disease: True Angina is chest pain or discomfort: True The benefits of resistance training include: True Eating more meat and dairy products: False Anti-platelet medications such as aspirin are important: True The only effective way to manage stress: False An exercise warm-up slowly increases heart rate: True Prepared, processed foods usually have high sodium: True Depression is common after a heart attack: True The statin medications lower cholesterol: True To control blood pressure, lower the amount of sodium: True If someone gets chest discomfort during walking: False Transfats are partially hydrogenated vegetable oils: True Sleep apnea that is not treated increases the risk: False To control cholesterol, one should become a vegetarian: False Someone knows if he/she is exercising at the right level: True Diabetes cannot be prevented with exercise & health eating: False Stress is a large risk for heart attack: True A diet that can help lower blood pressure is rich in: True - Total Score Total Correct Responses: 20 Self-Efficacy Discharge Assessment We would like to know how confident you are in doing certain activities. Please select your confidence level for:: Select your confidence level for the following using the scale 1-10 where 1 is not at all confident and 10 is totally confident. Your score is the average of all 6 responses. Fatigue: How confident are you that you can keep the fatigue caused by your disease from interfering with the things you want to do? Select Number: 10 Physical Discomfort or Pain: How confident are you that you can keep the physical discomfort or pain of your disease from interfering with the things you want to do? Select Number: 10 Emotional Distress: How confident are you that you can keep the emotional distress caused by your disease from interfering with the things you want to do? Select Number: 10 Other Symptoms or Health Problems: How confident are you that you can keep other symptoms or health problems from interfering with the things you want to do? Select Number: 10 Different Tasks and Activities: How confident are you that you can do the different tasks and activities needed to manage your health condition so as to reduce your need to see a doctor? Select Number: 10 Medication: How confident are you that you can do things other than just taking medication to reduce how much your illness affects your everyday life? Select Number: 10 Total Score:: 10 Nutrition Survey - Nutrition Survey Instructions Scoring Instructions: Scoring is as follows: Yes = 1 points. No = 0 point. Patient score that is >/=12 is considered to be at potential nutritional risk and could benefit from a referral to a registered dietitian. - Nutrition Survey Discharge Have you lost >10 lbs over the past 2 months without trying?: No Are you following a special diet at home for diabetes, low fat, or low salt?: Yes - Low fat, low sodium, 1800 calorie cardiac diet Are you interested in meeting with a dietitian for help understanding your diet?: No Do you eat less than 3 meals a day?: No Do you eat fatty meats (alonzo, sausage, ribs, etc), fried foods, desserts, large amounts of salad dressings, margarine, butter, or cheese most days?: No Do you have food allergies? [Enter types in comment field]: No Do you eat in restaurants more than 3 times a week?: No Do you season food with salt, seasoning salt, or garlic salt?: No Do you used canned, boxed, frozen meals, or soups, seasoning packets?: Yes - rarely. Total Score:: 2
[2018-06-06 12:18] VITALS: BP 130/64; BP 132/76
== END 2018-06-13 23:59 ==
LOC: CR 11:30
PROVIDERS: Family Provider Internal Medicine; PCP Internal Medicine; Visit Provider Internal Medicine Cardiovascular Disease
DX: I25.10 Atherosclerotic heart disease of native coronary artery without angina pectoris (principal); I25.2 Old myocardial infarction; Z95.5 Presence of coronary angioplasty implant and graft
CPT/HCPCS: 93798

== ENCOUNTER → 2018-08-30 08:37 | Outpatient (CLI) | payer OTHER, SELFPAY ==
[2018-08-30 09:29] LABS: AST(SGOT) 21 U/L (15-37); Alanine Aminotransfer ALT/SGPT 26 U/L (16-61); Albumin, Serum 3.9 g/dL (3.2-5.0); Alkaline Phosphatase 66 U/L (45-117); Cholesterol 133 mg/dL (200); Globulin 2.8 g/dL (2.2-4.2); High Density Lipoprotein 60 mg/dL; Protein, Total 6.7 g/dL (6.4-8.2); Triglycerides 120 mg/dL; Very Low Density Lipoprotein 24 mg/dL (5-40)
== END ==
PROVIDERS: Family Provider Internal Medicine; PCP Internal Medicine; Referring Provider Nurse Practitioner Family; Visit Provider Nurse Practitioner Family
DX: E78.00 Pure hypercholesterolemia, unspecified (principal)
CPT/HCPCS: 36415; 80061; 80076

== ENCOUNTER → 2020-05-06 12:10 | Outpatient (CLI) | payer OTHER, BC, SELFPAY ==
[2019-12-11 11:41] VITALS: BMI 26.6
--- NOTE | 2020-05-06 12:22 | ECHOD_ITS ---
Reason For Study: CAD Procedure This was a 2D Doppler, Color Flow transthoracic echocardiogram. Exam performed in department. Left Ventricle Normal LV size. Left ventricular systolic function is normal. The estimated ejection fraction is 60 %. Stage 2 diastolic dysfunction. No regional wall motion abnormalities noted. Right Ventricle Normal RV size. Normal systolic function. Atria Normal left atrium. Normal right atrium. Mitral Valve Normal mitral valve. Mild (1+) eccentric mitral valve insufficiency. Tricuspid Valve Normal tricuspid valve. Mild (1+) tricuspid valve insufficiency. Pulmonary artery systolic pressure is 28 mmHg. Aortic Valve Trisinus/trileaflet aortic valve. Mild focal aortic valve calcification. Pulmonic Valve Normal pulmonic valve. Mild (1+) pulmonic valve insufficiency. Great Vessels Normal aortic root. The pulmonary artery is normal size. Normal inferior vena cava. Pericardium/Pleural No pericardial effusion. MMode/2D Measurements & Calculations LVIDd: 3.9 cm IVSd: 1.0 cm Ao root diam: 3.7 cm LVIDs: 2.4 cm LVPWd: 0.99 cm RVDd: 3.8 cm FS: 38.8 % LAV(MOD-bp): 39.0 ml LVAd ap4: 30.9 cm2 SV(MOD-sp4): 51.4 ml LAV(MOD-bp) Indexed: 20.7 ml/m2 EDV(MOD-sp4): 96.0 ml LAV(MOD-sp2): 38.6 ml EDV(sp4-el): 98.7 ml LAV(MOD-sp4): 37.0 ml LVAs ap4: 19.8 cm2 ESV(MOD-sp4): 44.6 ml ESV(sp4-el): 45.8 ml EF(MOD-sp4): 53.6 % EF(sp4-el): 53.6 % SV(sp4-el): 52.9 ml LA A4 area: 15.0 cm2 LA dimension(2D): 2.8 cm RA A4 area: 14.9 cm2 Doppler Measurements & Calculations MV E max rich: 61.2 cm/sec Lat Peak E' Rich: 8.5 cm/sec Med Peak E' Rich: 6.0 cm/sec MV A max rich: 57.4 cm/sec E/E' lat: 7.2 E/E' med: 10.2 MV E/A: 1.1 Ao V2 max: 139.6 cm/sec LV V1 max: 83.3 cm/sec PA V2 max: 112.9 cm/sec Ao max P.8 mmHg LV V1 max P.8 mmHg TR max rich: 245.4 cm/sec TR max P.1 mmHg Interpretation Summary Normal LV size. Left ventricular systolic function is normal. The estimated ejection fraction is 60 %. Mild (1+) eccentric mitral valve insufficiency. Stage 2 diastolic dysfunction. The global longitudinal strain = -21.1 % (normal). Ordering Physician: Sylvester Arita Referring Physician: Lm Cantrell MD Performed By: Marisa Cooper RDCS
== END ==
PROVIDERS: Referring Provider Orthopaedic Surgery; Visit Provider Orthopaedic Surgery
DX: I25.9 Chronic ischemic heart disease, unspecified (principal)
CPT/HCPCS: 93306

== ENCOUNTER → 2022-05-26 | Outpatient (CLI) | payer BC, SELFPAY ==
--- NOTE | 2022-05-26 11:27 | STRESSREP ---
Stress Test Report Pharmacologic myocardial perfusion stress test. 76-year-old man with a history of coronary artery disease. Stress protocol: Resting EKG demonstrates sinus bradycardia with a rate of 55 bpm normal intervals are noted. Resting blood pressure is 132/70 mmHg. 0.4 mg of regadenoson was infused per usual protocol followed by Intravenous saline flush injection continuous EKG monitoring was performed. The maximum heart rate attained was 93 bpm which was 63% of maximum predicted heart rate the maximum workload was 1 metabolic equivalent. At rest there were no ST or T wave changes noted to suggest abnormal flow reserve from a peak infusion nonspecific ST changes were noted with did not meet the criteria for ischemia. No clinical angina was noted the final blood pressure was 132/72 mmHg. Myocardial perfusion protocol. 11.1 mCi of technetium 99m sestamibi was injected at rest. 0.4 mg of regadenoson was infused per usual protocol. At peak infusion 32.9 mCi of technetium 99m sestamibi was injected stress images were obtained stress and rest images were reconstructed and compared in the short axis vertical long and horizontal long axis. Gated images were also obtained. Perfusion SPECT analysis: Review of the stress images demonstrate normal uptake of tracer noted in all areas of the myocardium. The resting images similarly demonstrate normal uptake of tracer noted in all areas of the myocardium. No areas of reversibility are noted suggest ischemia and no previous infarct is noted. Gated SPECT analysis: The gated ejection fraction is 70%. Conclusion: Normal pharmacologic myocardial perfusion stress test. Preserved ejection fraction.
== END | disposition home or self-care (01) ==
LOC: CVS 06:14
PROVIDERS: Referring Provider Nurse Practitioner Family; Visit Provider Nurse Practitioner Family
DX: I25.10 Atherosclerotic heart disease of native coronary artery without angina pectoris (principal); I10 Essential (primary) hypertension; E78.00 Pure hypercholesterolemia, unspecified; Z95.5 Presence of coronary angioplasty implant and graft
CPT/HCPCS: 78452; 93017; A9500; A4216; J2785

== ENCOUNTER 2023-08-16 06:34 | Day surgery (SDC) | payer OTHER, SELFPAY ==
[2023-08-05 11:19] LABS: Absolute Lymphocyte Count 2.89 X10^3/uL (0.83-4.51); Absolute Neutrophil Count 3.7 X10^3/uL (2.0-7.7); Basophil# 0.06 X10^3/uL; Basophil% 0.8 % (0-1); Hematocrit 48.1 % (40-54); Hemoglobin 15.7 g/dL (13.0-16.5); Lymphocyte # 2.89 X10^3/ul (0.83-4.51); Lymphocyte % 38.5 % (19-41); Mean Corp Hgb Conc 32.6 g/dL (32-36); Mean Corpuscular Hgb 29.8 pg (27.0-32.0); Mean Corpuscular Volume 91.4 fL (80-94); Mean Platelet Vol. 9.3 fl (6.2-12.0); Monocyte# 0.57 X10^3/uL; Monocyte% 7.6 % (0-10); NRBC Flagged by Analyzer 0 % (0-5); Neutrophil # 3.65 X10^3/uL (2.7-7.7); Neutrophil % 48.7 % (47-70); Platelet Count 160 K/mm3 (150-450); RBC Distribution Width CV 12.2 % (11.6-14.6); RBC Distribution Width SD 40.9 fl (35.1-43.9); Red Blood Count 5.26 M/mm3 (4.6-6.2); White Blood Count 7.5 K/mm3 (4.4-11.0)
--- NOTE | 2023-08-05 11:30 | RAD_ITS ---
INDICATION: Cardiac Catheterization EXAMINATION/TECHNIQUE: X-RAY - XR Chest 2 Views COMPARISON: There are very thin at 2018 FINDINGS: LINES/DEVICES: None. LUNGS: No consolidation, edema or effusion. No pneumothorax. MEDIASTINUM AND CARDIOVASCULAR STRUCTURES: Cardiac silhouette not enlarged. Central airways and mediastinal contour are unremarkable. BONES AND SOFT TISSUES: Unremarkable. RAD/Chest PA and Lateral IMPRESSION: No radiographic evidence of acute cardiopulmonary disease. Electronically Signed: Tejal Huff MD at 13:09 EDT ,
[2023-08-05 11:42] LABS: Anion Gap 2 (5-15); BUN 18 mg/dL (7-18); BUN/Creat Ratio 16.5 RATIO (10-20); Calcium,Total 9.1 mg/dL (8.5-10.1); Chloride 108 mmol/L (98-107); Creatinine, Serum 1.09 mg/dL (0.70-1.30); EST Glomerular Filtration Rate 70 mL/min (>60); Est Glom Filt Rate - Afr Amer 85 mL/min (>60); Glucose 105 mg/dL (74-106); Potassium 4.4 mmol/L (3.5-5.1); Sodium Level 138 mmol/L (136-145)
--- NOTE | 2023-08-08 11:36 | PCM.HP.BLA ---
History and Physical Date of Admission: 08/16/23 TAYA SINGLETARY, is a 77 M who presents for a cardiac catheterization. He is a gentleman with a history of hypertension, hyperlipidemia, and non-ST elevation myocardial infarction in December 2017 with angioplasty and stenting of his left anterior descending artery. You do remember he underwent stress testing in April 2018 which demonstrated no evidence of ischemia at an excellent workload. He previously had blood work done at the [facility]. He was noted to be thrombocytopenic and so his aspirin has been cut down to every other day. He presented to his PCP's office with complaints of increased fatigue, dyspnea, and palpitations. He underwent an event monitor, which demonstrated episodes of ventricular tachycardia, and SVT. Intake Vital Signs See EMR Allergies See EMR Medications See EMR [facility] Medical History Atherosclerosis of coronary artery of [place] heart without angina pectoris Essential (primary) hypertension Hyperlipidemia Non-ST elevation (NSTEMI) myocardial infarction (12/20/17) Surgical History History of coronary artery stent placement (12/20/17) History of tonsillectomy and adenoidectomy History of wisdom tooth extraction Family History Father CancerGrandfather Diabetes Myocardial infarctionGrandmother Myocardial infarction Social History Smoking Status: Former smoker how long ago did patient quit smokin years ago alcohol intake: never caffeine: Yes Type: tea Number of servings: 1 ROS Const Const: Positive for fatigue, Negative for weakness, body ache, fever(s) or chills ENT ENT: Negative for dizziness or Nosebleed/epistaxis Cardio Chest Pain: No Palpitations: Yes Edema: None Muscle aches with walking: None Resp Respiratory: Positive for SOB with activity Negative SOB at rest, SOB orthopnea\SOB lying down, Cough or paroxysmal nocturnal dyspnea GI GI: Negative nausea, vomiting blood/hematemesis, bright, red blood in stools or black,tarry stools : Negative for hematuria or frequent nighttime urination/ nocturia Musc Musc: Negative for muscle aches/ myalgia Skin Skin: Negative non-healing lesions or rash Neuro Neuro: Negative for dizziness, lightheadedness, near syncope, syncope, orthostatic symptoms or weakness Endo Endo: Negative for fatigue Allergy Allergy/Immunology: Negative for rash Cardiology Exam Const Appearance: cooperative, healthy appearing, comfortable and no acute distress Nutritional Appearance: well nourished and overweight Orientation: alert, awake and oriented x3 Head Head: normal to inspection Ears: hearing grossly normal bilaterally Nose: external nose normal Face and Sinus: face symmetric Mouth: moist mucous membranes Eyes General: appearance normal, both eyes and all related structures Eyelids: eyelids normal EOM: EOM intact bilaterally Neck Neck: normal visual inspection and no JVD Carotids: normal carotid upstroke Chest Chest inspection: normal inspection of the chest, symmetric chest movement and normal respiratory effort; Negative cough Auscultation: Bilateral: Clear to Auscultation Cardio Rate: regular rate Rhythm: regular rhythm Heart sounds: S1 normal and S2 normal; Negative rub, gallop or murmur GI GI: normal to inspection Neuro General: patient alert, patient awake, patient oriented x3 and CN's II-XI intact bilaterally Skin Skin: no rashes or lesions noted Extremities Pulses: Normal: Right Posterior Tibial Pulse, Left Posterior Tibial Pulse, Right Radial Pulse and Left Radial Pulse Lower Extremity Edema: None: Bilateral Psych Psychological: normal affect Supplemental Info Supplemental Information Echocardiogram from 05/06/2020: Interpretation Summary Normal LV size. Left ventricular systolic function is normal. The estimated ejection fraction is 60 %. Mild (1+) eccentric mitral valve insufficiency. Stage 2 diastolic dysfunction. The global longitudinal strain = -21.1 % (normal). Heart catheterization from 12/20/2017: CONCLUSIONS Severe single-vessel disease involving the proximal left anterior descending artery with mild to moderate calcification. RECOMMENDATIONS Referred for immediate PCI CORONARY ANGIOGRAPHY DOMINANCE: Right Dominant LEFT HEART ASSESSMENT Left Ventricular Ejection Fraction: by LV Gram 53 % Anterior Hypokinesis - Mild Normal Left Ventricular systolic function LEFT MAIN: Angiographically normal LEFT ANTERIOR DESCENDING ARTERY: 95 % Stenosis PROX LAD: Mild calcification, long 95 % Stenosis CIRCUMFLEX ARTERY: Mild luminal irregularities RIGHT CORONARY ARTERY: Mild luminal irregularities Cardiac intervention from 12/20/2017: CONCLUSIONS Successful PTCA/MICHAEL of the proximal LAD with a 3.0 x 38 Promus Synergy, post dilated with a 3.25 x 12 NC balloon between 12 and 14 roger; 85%-->0%, no dissection. Medical management of LCX, RCA non obstructive disease. Stress test from 05/26/2022: Conclusion: Normal pharmacologic myocardial perfusion stress test. Preserved ejection fraction. Assessment and Plan Assessment and Plan (1) Atherosclerosis of coronary artery of [place] heart without angina pectoris: Status: Chronic Qualifiers: Coronary Disease-Associated Artery/Lesion type: [place] artery Qualified Code(s): I25.10 - Atherosclerotic heart disease of [place] coronary artery without angina pectoris Comment: [id number] LAD w/ 3.0 x 38 mm Synergy Stent 12/20/17; Plan: Patient has a history of coronary artery disease with stenting to his prox LAD in 2018. He does acknowledge fatigue and dyspnea. His most recent event monitor demonstrated episodes of ventricular tachycardia, and SVT. Would like to proceed with a cardiac catheterization to further assess this. Depending on results, further recommendations will be made. (2) Ventricular tachycardia: Patients most recent event monitor demonstrated episodes of ventricular tachycardia, and SVT. He does acknowledge fatigue, palpitations, and dyspnea. Given his previous history of CAD, would like to proceed with a cardiac catheterization to further assess this. Depending on results, further recommendations will be made.
[2023-08-15 08:23] VITALS: BMI 26.9
--- NOTE | 2023-08-16 08:55 | CL.D_ITS ---
Patient Name: TAYA SINGLETARY Study Date: 08/16/2023 Performing: Lm Cantrell MD Ht: 69 inches 175.26 cm : 1945 Wt: 181.99 lbs 82.55 kg Age: 77 Gender: male BSA: 1.98 PROCEDURE(S) PERFORMED [id number])LHC/COR/LV CLINICAL PROFILE AND INDICATIONS Indications: Cardiac Arrythmia Heart Failure: None Stress/Imaging Date: 06/04/22 CAD Presentations: Other: palpitations CONCLUSIONS Patent previously placed stent in the left anterior descending artery with mild to moderate disease noted in the circumflex and right coronary artery. Preserved ejection fraction. RECOMMENDATIONS We will recommend continuing current medical therapy and beta-juanis. DESCRIPTION OF PROCEDURE The patient arrived to the procedure lab. The risks and benefits of the procedure as well as a full description of our services here and current unavailability of surgical backup were fully explained to the patient and/or their significant other prior to the catheterization. The Timeout was completed, verifying the correct patient and procedure. The patient's procedural site was prepped and draped in the usual fashion. Local anesthetic was given subcutaneously to left radial region with Lidocaine 2%. Using a modified Seldinger technique, arterial access was obtained via the right radial artery, a 6Fr sheath was inserted. Left Coronary Artery selective angiography was performed in multiple views using a 5 Fr. 4.0 Mustang catheter. Right Coronary Artery selective angiography was then performed in multiple views using a 5 Fr. 4.0 Mustang catheter. Left Ventriculography was performed in SANTIAGO projection using a 5 Fr. Pigtail catheter. LV to AO pullback pressures were then recorded.The arterial sheath was pulled and a TR Band was applied for hemostasis CORONARY ANGIOGRAPHY DOMINANCE: Right Dominant LEFT HEART ASSESSMENT Left Ventricular Ejection Fraction: by LV Gram 55 % Anterior Hypokinesis - Mild Normal Left Ventricular systolic function LEFT MAIN: Mild calcification, Non-obstructive LEFT ANTERIOR DESCENDING ARTERY: Previously placed stent in the left proximal to mid left anterior descending artery is noted to be patent. 3 diagonal vessels with ostial disease but not high-grade and septal perforators with ostial disease. Mild diffuse distal disease present CIRCUMFLEX ARTERY: Moderate luminal irregularities up to 50% RIGHT CORONARY ARTERY: Moderate luminal irregularities up to 50% COMPLICATIONS No Complications PROCEDURE MEDICATIONS Versed 1 mg IV Fentanyl 50 mcg IV Versed 1 mg IV Oxygen: 2 L/min via nasal cannula Heparin given IA 08/16/2023 08:35:47 Verapamil 2.5mg, Ntg 100mcgs, 3000 units of Heparin given IA 08/16/2023 08:35:47 SUMMARY OF HEMODYNAMIC DATA Time AIR REST ECG 07:05:14 AO 110/63 (87) SA 08:37:49 LV 106/-1, 6 08:43:05 LV 98/0, 5 08:43:15 LV 0/0, 0 08:43:51 LV 79/0, 5 08:44:00 LVp 77/1, 5 08:44:04 AOp 0/0 (38) 08:44:11 AIR REST 08:54:21 Signed By Lm Cantrell MD On 08/16/2023 08:55:04 Lm Cantrell MD
== END 2023-08-16 10:33 | disposition home or self-care (01) ==
PROVIDERS: Nurse Practitioner Gerontology; Referring Provider Internal Medicine Cardiovascular Disease; Visit Provider Internal Medicine Cardiovascular Disease
DX: I25.10 Atherosclerotic heart disease of native coronary artery without angina pectoris (principal); I47.20 Ventricular tachycardia, unspecified; R00.2 Palpitations; I10 Essential (primary) hypertension; E78.5 Hyperlipidemia, unspecified; I25.2 Old myocardial infarction; Z79.82 Long term (current) use of aspirin; Z79.899 Other long term (current) drug therapy; Z87.891 Personal history of nicotine dependence; Z95.5 Presence of coronary angioplasty implant and graft
CPT/HCPCS: 36415; 71046; 80048; 85025; 93458; 99152; 99153; J7040; Q9967; C1769; C1894